=== PATIENT | female | born 1960 | race African-American/Black ===

== ENCOUNTER 2016-12-26 02:57 | Emergency (ER) | payer BC ==
[~2016-12-26] VITALS: Ht 165.1 cm; Wt 72.6 kg
[2016-12-26 03:43] VITALS: BP 179/125
[2016-12-26] MEDS ORDERED: BUPIVACAINE 0.5 % PF 150 MG/30 ML VIAL ONE (04:05)
[2016-12-26] MEDS ORDERED: BUPIVACAINE 0.5 % PF 150 MG/30 ML VIAL IJ ONE (04:30)
== END 2016-12-26 05:40 | disposition home or self-care (01) ==
LOC: ER 03:01
DX: H61.112 Acquired deformity of pinna, left ear (principal); F31.9 Bipolar disorder, unspecified; F17.200 Nicotine dependence, unspecified, uncomplicated; Z88.6 Allergy status to analgesic agent
CPT/HCPCS: 10160; 99284; A4606; A6402; J3490; Z7610

== ENCOUNTER 2016-12-29 14:20 | Emergency (ER) | payer BC ==
[~2016-12-29] VITALS: Ht 165.1 cm; Wt 6.8 kg
[2016-12-29 14:58] VITALS: BP 145/74
[2016-12-29] MEDS ORDERED: FLUORESCEIN SODIUM OPHTH 1 EA STRIP ONE (15:01)
[2016-12-29] MEDS ORDERED: TETRACAINE HCL/PF 0.5% UD 2 ML BOTTLE ONE (15:01)
[2016-12-29] MEDS ORDERED: FLUORESCEIN SODIUM OPHTH 1 EA STRIP OP ONE (15:30)
[2016-12-29] MEDS ORDERED: TETRACAINE HCL/PF 0.5% UD 2 ML BOTTLE OP ONE (15:30)
== END 2016-12-29 17:06 | disposition home or self-care (01) ==
LOC: ER 14:22
DX: H10.9 Unspecified conjunctivitis (principal); H92.02 Otalgia, left ear; F31.9 Bipolar disorder, unspecified; Z88.6 Allergy status to analgesic agent; F17.200 Nicotine dependence, unspecified, uncomplicated
CPT/HCPCS: 99283; 99406; A4606; Z7610

== ENCOUNTER 2020-05-07 09:41 | Inpatient (IN) | payer BC, MEDICAID, OTHER ==
[2020-05-07] VITALS (35 sets, daily range): BP systolic 56–133; BP diastolic 28–89
[~2020-05-07] VITALS: Ht 165.1 cm; Wt 107.0 kg
--- NOTE | 2020-05-07 09:45 | NUR ---
BIB RA [facility] FROM [facility],C/O ABDOMINAL PAIN SINCE YESTERDAY, PATIENT STATES "SMOKED MARIJUANA LAST WEEK", TO ER BED 14, HOOKED TO MONITOR, [facility]
[2020-05-07] MEDS ORDERED: ONDANSETRON HCL/PF 4 MG/2 ML VIAL ONE (09:53)
[2020-05-07] MEDS ORDERED: MORPHINE SULFATE INJ 2 MG/ML DISP.SYRIN IV ONE ×2 (10:00→11:00)
[2020-05-07] MEDS ORDERED: IV NS 0.9% 1,000 ML BAG IV ONE (10:00)
[2020-05-07] MEDS ORDERED: ONDANSETRON HCL/PF 4 MG/2 ML VIAL IVP ONE (10:00)
[2020-05-07] MEDS ORDERED: MORPHINE SULFATE INJ 4 MG/ML DISP.SYRIN ONE ×2 (10:03→11:11)
--- NOTE | 2020-05-07 10:15 | NUR ---
GUTIERREZ CATHETER INSERTED VIA STERILE TECHNIQUE. ORDERED BY DR. TERRY.
--- NOTE | 2020-05-07 10:20 | NUR ---
WHEELED OUT VIA RNEY FOR CT SCAN
[2020-05-07 10:21] LABS: BASOPHILS % (AUTO) 0.2 % (0.0-2.0); HEMATOCRIT 48 % (33-45); HEMOGLOBIN 15.4 g/dL (11.5-14.8); LYMPHOCYTES # (AUTO) 1.8 /CMM (0.8-4.8); LYMPHOCYTES % (AUTO) 9.9 % (20.0-44.0); MEAN CORPUSCULAR HGB CONC 32 g/dl (31.0-36.0); MEAN CORPUSCULAR VOLUME 82 fL (82-100); MONOCYTES # (AUTO) 0.9 /CMM (0.1-1.30); NEUTROPHILS # (AUTO) 15.4 /CMM (1.8-8.9); NEUTROPHILS % (AUTO) 84.9 % (43.0-81.0); PLATELET COUNT (AUTO) 320 /CMM (150-450); RED BLOOD CELL COUNT(AUTO) 5.88 MIL/uL (4.0-5.2); WHITE BLOOD COUNT (AUTO) 18.2 K/uL (4.3-11.0)
[2020-05-07 10:32] LABS: CALCIUM, SERUM 10.1 mg/dL (8.5-10.1); CREATININE 6.7 mg/dL (0.6-1.3); POTASSIUM 5.5 mmol/L (3.5-5.1)
[2020-05-07 10:41] LABS: ALBUMIN 3.8 g/dL (3.4-5.0); BILIRUBIN,DIRECT 0.2 mg/dL (0.0-0.2); BILIRUBIN,TOTAL 1.4 mg/dL (0.2-1.0); TOTAL PROTEIN, SERUM 8.7 g/dL (6.4-8.2)
--- NOTE | 2020-05-07 10:55 | NUR ---
NO URINE OUTPUT FROM GUTIERREZ CATHETER, MADE AWARE, VERBAL ORDER OF 1L NS IVPB, CARRIED OUT
--- NOTE | 2020-05-07 11:23 | NUR ---
PATIENT REFUSED NG TUBE INSERTION, MADE AWARE.
--- NOTE | 2020-05-07 11:26 | NUR ---
MADE AWARE OF PATIENT'S BP. MD ORDERED TO HOLD OFF MORPHINE 4MG IV. CARRIED OUT
--- NOTE | 2020-05-07 11:27 | NUR ---
PLACED PATIENT ON [place]BURG POSITION, ONGOING IV FLUIDS. RECEIVED VERBAL ORDER FROM DR TERRY FOR A THIRD LITER OF NS IVPB. CARRIED OUT.
--- NOTE | 2020-05-07 11:47 | NUR ---
RAPID COVID SWAB DONE AND SENT TO LAB
[2020-05-07] MEDS ORDERED: VANCOMYCIN 1 GM in IV D5W 250 ML IV ONE (12:00)
[2020-05-07] MEDS ORDERED: IV NS 0.9% 1,000 ML IV ONE (12:00)
[2020-05-07] MEDS ORDERED: PIPERACILLIN /TAZOBACTAM 3.375 G in IV D5W 50 ML IV ONE (12:00)
[2020-05-07] MEDS ORDERED: VANCOMYCIN 1 GM VIAL ONE (12:01)
--- NOTE | 2020-05-07 12:10 | NUR ---
PROJECT CONTROLS SCHEDULER TOVAR AT BEDSIDE
--- NOTE | 2020-05-07 12:22 | NUR ---
ICU 251
[2020-05-07] MEDS ORDERED: MAGNESIUM HYDROXIDE 30 ML UDC PO PRN (12:30)
[2020-05-07] MEDS ORDERED: IV NS 0.9% 500 ML BAG IV ONE ×2 (12:30→15:30)
--- NOTE | 2020-05-07 12:43 | NUR ---
COVID RESULT RECEIVED FROM LAB: NEGATIVE
--- NOTE | 2020-05-07 13:02 | NUR ---
REPORT GIVEN TO NANCY RITCHIE OF ICU
--- NOTE | 2020-05-07 13:58 | NUR ---
PER RADIOLOGIST MD DANG, TO HOLD UNTIL PT IS TRANSFERED TO THEIR ROOM. TO PERFORM EXAM PREFERABLY WHEN PT HAS NG TUBE TO DECREASE ASPIRATION RISK.
--- NOTE | 2020-05-07 14:11 | NUR ---
DR TERRY AT BEDSIDE FOR CENTRAL LINE PLACEMENT
[2020-05-07 15:13] LABS: APPEARANCE,URINE SL CLOUDY (CLEAR); BILIRUBIN,URINE NEGATIVE (NEGATIVE); BLOOD, URINE LARGE Ery/uL (NEGATIVE); COLOR,URINE YELLOW (YELLOW); KETONES,URINE NEGATIVE (NEGATIVE); LEUKOCYTE ESTERASE ,URINE NEGATIVE (NEGATIVE); NITRITE, URINE NEGATIVE (NEGATIVE); PH,URINE 5.5 (5.0-8.0); PROTEIN,URINE 100 mg/dl (NEGATIVE); UGLUCOSE NEGATIVE (NEGATIVE); UROBILINOGEN,URINE 0.2 EU/dL (0.2)
[2020-05-07] MEDS: NOREPINEPHRINE 8 MG in IV NS 0.9% 242 ML IV PRN ×2 (15:22→23:22)
[2020-05-07 15:42] LABS: BACTERIA,URINE 1+ /HPF (None Seen); COARSE GRANULAR CASTS,URINE Few /LPF (None Seen); RBC,URINE 21-50 /HPF (0-2); SQUAMOUS EPITHELIAL CELL,UR Moderate /HPF (None Seen); URINE AMORPHOUS URATE Few /HPF (None Seen)
--- NOTE | 2020-05-07 16:15 | NUR ---
agriculture internship received pt from ER aox2 on 2l nc st on monitor, iv access patent L hand and R grown picc line patent, pt on levophed as ordered sbp 80s pt is a symptomatic awake, complaining of pain 10/ awaiting for md order for pain management, Dr. Pickens at bedside assessing the pt no further orders received from him, safety measures taken call light w/ in reach will con to monitor.
[2020-05-07] MEDS: IV NS 0.9% 1,000 ML IV PRN (17:19)
[2020-05-07] MEDS: MORPHINE SULFATE INJ 2 MG/ML DISP.SYRIN IV PRN ×2 (17:20→21:21)
[2020-05-07] MEDS ORDERED: DIATR MEGLU/DIATRIZOATE SODIUM 120 ML BOTTLE (GASTROGRAPHIN) ONE (17:35)
--- NOTE | 2020-05-07 18:02 | NUR ---
agriculture science teacher nima monahan arrived for small bowl follow through test...
--- NOTE | 2020-05-07 19:30 | NUR ---
ICU/SLIDE DEVELOPER AIRCRAFT LINE ASSEMBLER HERE TO DO SMALL BOWEL FOLLOW THROUGH TEST WITH GASTROGRAFIN.
--- NOTE | 2020-05-07 20:30 | NUR ---
ICU/CABINET WORKER TRANSFER SPECIALIST HERE TO DO SMALL BOWEL FOLLOW THROUGH TEST WITH GASTROGRAFIN.
[2020-05-07] MEDS: PIPERACILLIN /TAZOBACTAM 2.25 G in IV D5W 50 ML IV SCH (21:21)
--- NOTE | 2020-05-07 21:30 | NUR ---
ICU/EMBEDDED SYSTEMS SOFTWARE ENGINEER ROSE GRADER HERE TO DO SMALL BOWEL FOLLOW THROUGH TEST WITH GASTROGRAFIN.
--- NOTE | 2020-05-07 21:45 | NUR ---
ICU/BOOTH OPERATOR PT COMPLAINED ABOUT SEVER ABDOMINAL PAIN RATED AT 10/10. NOTIFIED CHARGE NURSE WHO THEN GAVE MORPHINE IVP 2MG.
[2020-05-07] MEDS: ONDANSETRON HCL/PF 4 MG/2 ML VIAL IVP PRN (23:16)
[2020-05-07] MEDS ORDERED: NOREPINEPHRINE 8MG/250ML RTU 250 ML IV ONE (23:19)
--- NOTE | 2020-05-07 23:25 | NUR ---
ICU/PHOTOGRAPHY TEACHER PT HAD VOMITING X2, NOTIFIED CHARGE NURSE WHO GAVE ZOFRAN IVP FOR THIS. WILL CONTINUE TO MONITOR THIS PT AND HER NAUSEA.
--- NOTE | 2020-05-07 23:50 | NUR ---
ICU/SHOP MECHANIC HELPER PT HAD LARGE WATERY BOWEL MOVEMENT, FOR ABOUT 45-55 MINUTES. PT WAS CLEAN AND PLACED IN BED WITH CALL LIGHT.
[2020-05-08] VITALS (96 sets, daily range): BP systolic 68–160; BP diastolic 30–100
[2020-05-08 00:04] LABS: BASOPHILS % (AUTO) 0.1 % (0.0-2.0); HEMATOCRIT 45 % (33-45); HEMOGLOBIN 14.1 g/dL (11.5-14.8); LYMPHOCYTES # (AUTO) 0.5 /CMM (0.8-4.8); LYMPHOCYTES % (AUTO) 8.2 % (20.0-44.0); MEAN CORPUSCULAR HGB CONC 31 g/dl (31.0-36.0); MEAN CORPUSCULAR VOLUME 83 fL (82-100); MONOCYTES # (AUTO) 0.7 /CMM (0.1-1.30); MONOCYTES % (AUTO) 11.2 % (2.0-12.0); NEUTROPHILS % (AUTO) 80.5 % (43.0-81.0); PLATELET COUNT (AUTO) 276 /CMM (150-450); RED BLOOD CELL COUNT(AUTO) 5.44 MIL/uL (4.0-5.2); WHITE BLOOD COUNT (AUTO) 6.2 K/uL (4.3-11.0)
[2020-05-08 00:52] LABS: CALCIUM, SERUM 8.5 mg/dL (8.5-10.1); CREATININE 5.3 mg/dL (0.6-1.3); POTASSIUM 5.3 mmol/L (3.5-5.1)
[2020-05-08] MEDS: MORPHINE SULFATE INJ 2 MG/ML DISP.SYRIN IV PRN ×2 (02:36→08:48)
[2020-05-08] MEDS: IV NS 0.9% 1,000 ML IV PRN ×2 (02:37→14:04)
--- NOTE | 2020-05-08 02:37 | NUR ---
ICU/MEAT PROCESSING CENTER MANAGER PT COMPLAINED ABOUT SEVER ABDOMINAL PAIN RATED AT 10/10. NOTIFIED CHARGE NURSE WHO THEN GAVE MORPHINE IVP 2MG. WILL CONTINUE TO MONITOR THIS PT'S PAIN.
[2020-05-08 04:19] LABS: BASOPHILS % (AUTO) 0.3 % (0.0-2.0); HEMATOCRIT 40 % (33-45); HEMOGLOBIN 12.7 g/dL (11.5-14.8); LYMPHOCYTES # (AUTO) 0.3 /CMM (0.8-4.8); LYMPHOCYTES % (AUTO) 7.7 % (20.0-44.0); MEAN CORPUSCULAR HGB CONC 32 g/dl (31.0-36.0); MEAN CORPUSCULAR VOLUME 82 fL (82-100); MONOCYTES # (AUTO) 0.4 /CMM (0.1-1.30); MONOCYTES % (AUTO) 11.5 % (2.0-12.0); NEUTROPHILS # (AUTO) 3.1 /CMM (1.8-8.9); NEUTROPHILS % (AUTO) 80.5 % (43.0-81.0); PLATELET COUNT (AUTO) 249 /CMM (150-450); WHITE BLOOD COUNT (AUTO) 3.9 K/uL (4.3-11.0)
[2020-05-08 04:26] LABS: APPEARANCE,URINE CLOUDY (CLEAR); BILIRUBIN,URINE NEGATIVE (NEGATIVE); BLOOD, URINE LARGE Ery/uL (NEGATIVE); COLOR,URINE YELLOW (YELLOW); KETONES,URINE NEGATIVE (NEGATIVE); LEUKOCYTE ESTERASE ,URINE NEGATIVE (NEGATIVE); NITRITE, URINE NEGATIVE (NEGATIVE); PH,URINE 5.5 (5.0-8.0); PROTEIN,URINE 100 mg/dl (NEGATIVE); UGLUCOSE NEGATIVE (NEGATIVE); UROBILINOGEN,URINE 0.2 EU/dL (0.2)
[2020-05-08 04:38] LABS: URINE TOTAL PROTEIN 189.3 mg/dL (0-11.9)
[2020-05-08 04:39] LABS: CALCIUM, SERUM 7.7 mg/dL (8.5-10.1); CREATININE 4.8 mg/dL (0.6-1.3); MAGNESIUM 2.2 mg/dL (1.8-2.4); PHOSPHORUS 6.7 mg/dL (2.5-4.9); POTASSIUM 4.6 mmol/L (3.5-5.1); THYROID STIMULATING HORMONE 0.571 uIU/mL (0.358-3.74)
[2020-05-08 04:44] LABS: BACTERIA,URINE Moderate /HPF (None Seen); RBC,URINE TOO NUMEROUS TO COUN /HPF (0-2); SQUAMOUS EPITHELIAL CELL,UR Few /HPF (None Seen)
[2020-05-08 04:47] LABS: FINE GRANULAR CASTS,URINE Few /LPF (None Seen)
[2020-05-08 05:07] LABS: EOSINOPHIL,URINE None Seen
[2020-05-08] MEDS: PIPERACILLIN /TAZOBACTAM 2.25 G in IV D5W 50 ML IV SCH (05:15)
[2020-05-08] MEDS ORDERED: NOREPINEPHRINE 8MG/250ML RTU 250 ML IV ONE (05:49)
[2020-05-08] MEDS: NOREPINEPHRINE 8 MG in IV NS 0.9% 242 ML IV PRN ×2 (05:52→11:37)
--- NOTE | 2020-05-08 07:25 | NUR ---
agricultural agent received pt in bed aox3 restless complaining of not being able to eat and wants to eat, pt teaching done safety measures taken call light w/ in reach iv access amada r grown picc line intact dressing cdi, carreno patent yellow urine present will continue to monitor and take care of pt needs.
[2020-05-08] MEDS: HYDROCORTISONE SOD SUCCINATE 100 MG/2 ML VIAL IV SCH ×3 (09:31→21:45)
[2020-05-08] MEDS: HEPARIN SODIUM, PORCINE 5000 UNITS/1 ML VIAL SQ SCH ×2 (09:32→21:48)
[2020-05-08 09:51] LABS: ALBUMIN 2.7 g/dL (3.4-5.0); BILIRUBIN,DIRECT 0.3 mg/dL (0.0-0.2); TOTAL PROTEIN, SERUM 6.3 g/dL (6.4-8.2)
[2020-05-08] MEDS: PIPERACILLIN /TAZOBACTAM 3.375 G in IV D5W 100 ML IV SCH (13:35)
--- NOTE | 2020-05-08 15:54 | NUR ---
Speech And Hearing Clinic Director met with the patient at bedside for a homelessness consult requested by patients physician, Sam Parkinson NP. Patient is a 59-year-old female. Patient is alert and oriented x3. Patient was lying in bed with a towel over her head. Patient was receptive to speaking with this SW as she moved the towel upwards in motion to uncover her eyes to make direct eye contact. This SW was able to verify patients social security number and date of . Patient reported that she was living at [facility] but could not provide an address when asked. Patient stated that she is having physical distress and began to list her symptoms including stomach burning, chest pain, and blood sugar lowering. SW encouraged the patient to speak about her mental and emotional distress, if she had any. Patient began to share that she is grieving the loss of her 31-year-old son by stating I have 2 days to get out of here to attend my sons . Patient gave verbal consent to contact her sister Fior Arriaga to find out more information by stating Call my sister, she will tell you more. Following this, patient refused to speak with this SW by stating I will not tell you more, I am grieving. This SW thanked her and stated that she would return later in the day to try to finish assessment.
--- NOTE | 2020-05-08 15:55 | NUR ---
. 10:15am This SW unsuccessful to contact sister Fior Arriaga as phone is disconnected.
--- NOTE | 2020-05-08 18:10 | NUR ---
RECORDING STUDIO SET UP WORKER PT IN BED ALL PT NEEDS MEET ATTEMPTED TO DC LEVOPHED UNSUCCESSFULLY, PT ON MINIMAL DOSE OF LEVOPHED FOR SBP SUPPORT PT TOLERATES PO FLUIDS, ALL PT NEEDS MEET SAFETY MEASURES TAKEN CALL LIGHT W/ IN REACH WILL GIVE REPORT TO PM NURSE FOR CON OF CARE.
--- NOTE | 2020-05-08 19:15 | NUR ---
LOAD CHECKER RECEIVED PATIENT IN BED A/O X4 GUAMANIAN SPEAKER AND BLIND ON THE LEFT EYE. PATIENT COMPLAINS OF SOME ABD PAIN THAT RELIEVES WHEN PATIENT REPOSITIONS HERSELF. PATIENT WAS ASSESSED ON ROOM AIR BUT NOTICES SOME DESATURATING SO JUST OUT HER ON 2L OF O2 FOR COMFORT. PATIENT HAS A R GROIN PICC WITH LEVO RUNNING AT 0.05MCG/KG/MIN, AND NS AT 125CC/HR. COMMODE WAS PLACED AT BEDSIDE SINCE PATIENT IS REFUSING FOR A GUTIERREZ TO BE INSERTED. PATIENT IS ABLE TO AMBULATE TO COMMODE WITH ASSISTANCE. PATIENT ON THE MONITOR SHOWING SINUS WITH HR AT 95 TACHY WHEN SHE SHOWS AGITATION DUE TO HER ABD PAIN. ALL SAFETY PRECAUTIONS APPLIED. WILL CONTINUE TO MONITOR PATIENT THROUGHOUT SHIFT.
[2020-05-09] VITALS (63 sets, daily range): BP systolic 48–133; BP diastolic 28–84
[2020-05-09] MEDS: PIPERACILLIN /TAZOBACTAM 3.375 G in IV D5W 100 ML IV SCH ×2 (00:22→12:40)
[2020-05-09] MEDS: NOREPINEPHRINE 8 MG in IV NS 0.9% 242 ML IV PRN (00:36)
[2020-05-09 03:58] LABS: BASOPHILS % (AUTO) 0.1 % (0.0-2.0); HEMATOCRIT 37 % (33-45); HEMOGLOBIN 11.9 g/dL (11.5-14.8); LYMPHOCYTES # (AUTO) 0.2 /CMM (0.8-4.8); LYMPHOCYTES % (AUTO) 3.7 % (20.0-44.0); MEAN CORPUSCULAR HGB CONC 32 g/dl (31.0-36.0); MEAN CORPUSCULAR VOLUME 82 fL (82-100); MONOCYTES # (AUTO) 0.7 /CMM (0.1-1.30); MONOCYTES % (AUTO) 11.2 % (2.0-12.0); NEUTROPHILS # (AUTO) 5.1 /CMM (1.8-8.9); PLATELET COUNT (AUTO) 205 /CMM (150-450); RED BLOOD CELL COUNT(AUTO) 4.58 MIL/uL (4.0-5.2)
[2020-05-09 04:14] LABS: ALANINE AMINOTRANSFERASE 29 U/L (12-78); ALBUMIN 2.3 g/dL (3.4-5.0); ALKALINE PHOSPHATASE 78 U/L (46-116); ASPARTATE AMINOTRANSFERASE 29 U/L (15-37); BILIRUBIN,TOTAL 0.9 mg/dL (0.2-1.0); CARBON DIOXIDE 18 mmol/L (21-32); CHLORIDE 111 mmol/L (98-107); CREATININE 3.1 mg/dL (0.6-1.3); GLUCOSE 151 mg/dL (74-106); MAGNESIUM 2.3 mg/dL (1.8-2.4); PHOSPHORUS 4.3 mg/dL (2.5-4.9); POTASSIUM 3.8 mmol/L (3.5-5.1); SODIUM SERUM 144 mmol/L (136-145); TOTAL PROTEIN, SERUM 6.2 g/dL (6.4-8.2); UREA NITROGEN, BLOOD 56 mg/dL (7-18)
[2020-05-09] MEDS: HYDROCORTISONE SOD SUCCINATE 100 MG/2 ML VIAL IV SCH (05:01)
[2020-05-09] MEDS: MORPHINE SULFATE INJ 2 MG/ML DISP.SYRIN IV PRN ×4 (05:35→20:37)
[2020-05-09] MEDS: IV NS 0.9% 1,000 ML IV PRN ×2 (05:53→12:51)
[2020-05-09] MEDS: MAG HYDROX/AL HYDROX/SIMETH 30 ML UDC PO PRN ×3 (05:59→17:48)
--- NOTE | 2020-05-09 07:50 | NUR ---
EXTERMINATOR HELPER: pt is blind reported
--- NOTE | 2020-05-09 08:00 | NUR ---
SUPERINTENDENT DIVISION: pt.is A/Ox3, needy, got all AM/skin care, on Levophed gtt 0.05 mcg/kg/m, SBP 90-105 now, continue titrate, SR, O2sat 94-96% on 2Lnc, c/o abdomen pain 2-310 now, said: I have gastroenteritis, refused to take breakfast, placed order for hand cigar maker consult, w/s with MD, had BM, no blood/urinated, said: you have to send stool sample to lab right now because I have gastroenteritis, will notify , IVF: 125ml/h, able to use bedside commode with help, pt. was instructed re injury prevention measures, safety measures, fall prevention measures, nurse call remote at the pt.hands, PICC is patent/intact
[2020-05-09] MEDS: HEPARIN SODIUM, PORCINE 5000 UNITS/1 ML VIAL SQ SCH ×2 (08:16→20:36)
--- NOTE | 2020-05-09 10:04 | NUR ---
CREPING MACHINE OPERATOR HELPER: is in room, updated with pt.c/o, mental status, VS, Levophed gtt, IVF, diet and pt.request, history, I/O, BMx1, see new orders
--- NOTE | 2020-05-09 10:10 | NUR ---
APPARATUS OPERATOR: pt.spoke with chief business officer by phone call
--- NOTE | 2020-05-09 10:40 | NUR ---
MANAGER CULINARY: pt.c/o abdomen pain 7-8/10, restless, agitating, uncooperative, was encouraged to follow POC, got help to get bedside commode: urine mixed with liquid stool, will notify MD, asks apple juice exactly mixed 1:1 with water and ice, SB over 100/stopped Levophed gtt, SR, O2sat. over 93% on 2L nc, Morphine 2mg IV given, pt.is blind, spoke with charge nurse if possible to get sitter?
--- NOTE | 2020-05-09 11:00 | NUR ---
ICE CREAM MIXER: pt.is quite now, rest, SR, SBP over 100/Levophed off, hold Ativan now/continue monitoring
--- NOTE | 2020-05-09 11:50 | NUR ---
MACHINERY REPAIR MAINTENANCE SUPERVISOR: Levophed gtt is off since 07.18, pt had one BM liquid mixed with urine, pt.got Gastrografin on 05/07, is notified re above, ok to transfer pt if Levophed is off over 12hrs and SBP over 100, charge nurse updated
[2020-05-09] MEDS ORDERED: VANCOMYCIN 0.75 GM in IV D5W 250 ML IV SCH (12:00)
--- NOTE | 2020-05-09 12:10 | NUR ---
COMMUNICATION STUDIES PROFESSOR: psych.MD called/spoke with pt., see new orders
--- NOTE | 2020-05-09 12:30 | NUR ---
BOBBIN SORTER: pt is restless now, agitating, was asking for tea, bread, banana, /got it, got bedside commode, liquid stool, loose with urine+, refused to check BP, O2 nc, encouraged to be cooperative, follow POC, agree to get Ativan 0.5 mg, SW spoke with pt.
[2020-05-09] MEDS: LORAZEPAM INJ 2 MG/ML VIAL IV PRN (12:51)
[2020-05-09] MEDS: DULOXETINE HCL 30 MG CAPSULE.DR PO SCH (13:58)
--- NOTE | 2020-05-09 14:50 | NUR ---
LEAD TELLER: SR/ST max 110, Levophed is off/SBP over 95-100, Osat.WNL but pt removed NC multiple times, NS reapplied with O2sat. 90-93%, got Cymbalta, got part of lunch again, c/o anterior abdomen pain 7-8/10, some bloating, got Morphine 2 mg IV, getting Maalox, able to use bedside commode by herself with assistant center director, refused for F/c before reported
--- NOTE | 2020-05-09 15:13 | NUR ---
11:30am This SW returned to this patients room to attempt to finish her homelessness consult requested by patients physician, Sam Parkinson NP. Patient is currently in the ICU. Patient is a 59 year-old female. When this SW entered the room this patient was observed to be restless and agitated. This patient stated that she was in physical distress, My stomach hurts, I need to get it pumped. Patient was also asking for food and RN was in the room setting up the patients food during this interaction with this SW. Patient stated to this SW, I do not want to talk to you, call my sister. This SW was unable to speak with the patients sister Fior, yesterday 05/08/2020. This SW received verbal consent by the patient to attempt speaking with her sister again today 05/09/2020.
--- NOTE | 2020-05-09 15:14 | NUR ---
11:45am This SW attempted to contact with patients sister Fior . This SW was once again unable to connect with Fior, however was able to leave a voicemail for the patients sister.
--- NOTE | 2020-05-09 16:00 | NUR ---
BOGGER OPERATOR: pt.is rest, sleeps well, no c/o now, SR, SBP over 100, O2sat. over 96%
--- NOTE | 2020-05-09 17:07 | NUR ---
MINIBUS DRIVER: placed pt on RA, O2sat. 96-100%, no SOB
--- NOTE | 2020-05-09 18:19 | NUR ---
EVENTS TRAFFIC CONTROLLER: pt.pulled out partially PICC dressing, new one applied with sterile technique, blood return+, pt.is still needy, asking for different help [id number], got help with everything: feeding, drinking, transfer, reposition, warmed, all PM/skin/bedbath care done, c/o dyspepsia, said: my stomach is pumped, asked and got Maalox, asked and got dinner included Ensure, SR/ST 110 max, SBP over 100
--- NOTE | 2020-05-09 18:40 | NUR ---
ENGINEERING SUPERVISOR: GORDO Landaverde updated with pt.current condition, Levophed gtt off, VS, I/O, liquid stool episodes, c/o, pain level/location, see new order
--- NOTE | 2020-05-09 19:10 | NUR ---
AIRLINE MANAGER OPENING NOTES: Rec'd pt asleep in bed, easily arousable, A&Ox3. On room air, O2 sat WNL. No SOB or resp distres noted. SR/ST on tele monitor. Right groin PICC line and LH #20 IV sites patent and flushed. Dressings c/d/i. NS infusing at 125ml/hr. Per AM RN, ok to transfer pt if BP remains stable at 2200. Safety measures in place. Will continue to monitor.
--- NOTE | 2020-05-09 21:20 | NUR ---
Report given to CHAU Morrell for WINTER.
--- NOTE | 2020-05-09 21:45 | NUR ---
rn notes: per report pt had small bowel follow through and after that pt started having loose bm, id aware, and new order this afternoon to collect stool cdiff, per juanita curriculum coordinator pt has no bm yet.
[2020-05-09] MEDS: ONDANSETRON HCL/PF 4 MG/2 ML VIAL IVP PRN (21:48)
--- NOTE | 2020-05-09 21:48 | NUR ---
prn zofran: pt vomited food and fluids, once, prn zofran 4mg ivp administered to pt at this time. will continue to monitor and reassess
--- NOTE | 2020-05-09 21:57 | NUR ---
rn notes/assessment: skin assessment performed, pt has right groin picc line with tlc, all patent and flushing well, with good blood return noted, pt receiving ns at 125ml/hr. pt instructed not to drinkl or eat for the mean time since shes vomiting. abdomen soft to touch with actiuve bowel sound heard upon auscultation, pt claimed she's been passing a lot of gas, prn maalox administered in icu 3hrs ago. inventory of belongings completed by kevin renee. vs taken and recorded. bed side commode available, and bedpan for voiding. placed on cdiff isolation, ppe utillized. bleach solution available at cart. safety precautions for fall initiated, call light in reach, will continue monitoring pt.
--- NOTE | 2020-05-09 22:00 | NUR ---
rn notes: per report, pt pulled out carreno catheter on 05/07, and pt been refusing to reinsert carreno. pt been voiding freely on bedpan.
--- NOTE | 2020-05-09 23:06 | NUR ---
rn notes: pt sound asleep, appears calm and comfortable, no facial grimace noted, equaul rise and fall of chest noted. fall precautions engaged, call light in reach, kevin renee sitting outside the room in case pt called for assistance. will continue monitoring pt.
[2020-05-10] MEDS: IV NS 0.9% 1,000 ML IV PRN ×2 (00:23→20:41)
[2020-05-10] MEDS: PIPERACILLIN /TAZOBACTAM 3.375 G in IV D5W 100 ML IV SCH ×3 (00:26→19:58)
--- NOTE | 2020-05-10 00:47 | NUR ---
transfer of care notes: pt remains a/o x3, needy, manipulative. right groin picc line remains patent and flushing well, infusing with ns at 125ml/hr, no s/s of iv infiltration noted. remains with good blood return. pt remains on clear liquid diet. prn zofran administered for episode of vomiting. prn morphine administered for c/o abdl pain. bed side commode available. still needs joanne for cdiff, no bm noted throughout the shift. PLAN OF CARE: Cont iv atb, psych started pt on cymbalta daily, social svc on case for homelessness. Remains on cdiff isolation. ppe utilized. Safety precautions for fall remains engaged, call light in reach, will endorse to pat hodgson for continuuity of care.
--- NOTE | 2020-05-10 00:50 | NUR ---
MS RN NOTES RECEIVED REPORT FROM TERRY, RN; WILL CONT TO MONITOR; WILL CONT PLAN OF CARE
--- NOTE | 2020-05-10 02:46 | NUR ---
MS RN NOTES DARK GREEN EMESIS NOTED; CHARGE NURSE AWARE; WILL CONT TO MONITOR
[2020-05-10] MEDS: MORPHINE SULFATE INJ 2 MG/ML DISP.SYRIN IV PRN ×3 (02:55→19:58)
--- NOTE | 2020-05-10 02:55 | NUR ---
MS RN NOTES PATIENT SCREAMING FOR PAIN MEDICATION; PATIENT VITALS STABLE; REQUESTING MORPHINE; 2MG MORPHINE IVP ADMINISTERED PER MD ORDER; WILL CONT TO MONITOR; L HAND # 20 IV SITE PULLED OUT ON ACCIDENT; IV TIP INTACT; CHARGE NURSE AWARE; WILL CONT TO MONITOR
--- NOTE | 2020-05-10 06:52 | NUR ---
MS RN CLOSING NOTES PATIENT RESTING IN BED COMFORTABLY; A/OX3-4, NEEDY/MANIPULATIVE PATIENT; PATIENT IS BLIND; BREATHING EVEN AND UNLABORED; NO SOB NOTED; TOLERATING ROOM AIR WELL; PATIENT ABLE TO MAKE NEEDS KNOWN; R GROIN PICC LINE INTACT AND PATENT, FLUSHING WELL; INFUSING NS @ 75ML/HR; TOLERATING IVF WELL; R/O CDIFF BUT NO BOWEL MOVEMENT THROUGHOUT SHIFT, WILL INFORM DAY SHIFT; PATIENT HAD APPROX 3 EMESIS THROUGHOUT SHIFT; PATIENT UNABLE TO TOLERATE DIET; CHARGE NURSE AWARE; WILL INFORM DAY SHIFT; ALL NEEDS RENDERED; SAFETY PRECAUTIONS IMPLEMENTED; BED LOCKED IN LOW POSITION; SIDE RAILSX2; CALL LIGHT WITHIN EASY REACH; WILL ENDORSE WINTER TO ONCOMING SHIFT
[2020-05-10 08:00] VITALS: BP 145/98
[2020-05-10] MEDS: DULOXETINE HCL 30 MG CAPSULE.DR PO SCH (08:02)
[2020-05-10] MEDS: HEPARIN SODIUM, PORCINE 5000 UNITS/1 ML VIAL SQ SCH ×2 (08:04→20:33)
[2020-05-10] MEDS: MAG HYDROX/AL HYDROX/SIMETH 30 ML UDC PO PRN ×2 (08:10→20:31)
[2020-05-10 09:03] LABS: CALCIUM, SERUM 8.9 mg/dL (8.5-10.1); CREATININE 1.6 mg/dL (0.6-1.3); POTASSIUM 3.5 mmol/L (3.5-5.1)
--- NOTE | 2020-05-10 09:25 | NUR ---
rn notes patient received on room air, no sob noted, a/o x3 and is bilaterally blind. No N/V at this time, LFA 22 with no IVF running. Patient comfortable at this time. Bed at the lowest setting, call light within reach, side rails up x2.
[2020-05-10] MEDS: ONDANSETRON HCL/PF 4 MG/2 ML VIAL IVP PRN ×2 (10:58→20:31)
--- NOTE | 2020-05-10 17:25 | NUR ---
rn notes patient remains on room air, no sob noted, a/o x3 and is bilaterally blind. No N/V at this time, LFA 22 with no IVF running. Patient comfortable at this time. Bed at the lowest setting, call light within reach, side rails up x2.
--- NOTE | 2020-05-10 19:20 | NUR ---
turn out worker: pt a/o x3, needy, manipulative. on ra respirations even right groin picc line remains patent and flushing well, infusing with ns at 125ml/hr, remains with good blood return. bed side commode available. still needs stool for cdiff, cdiff isolation. ppe utilized. Safety precautions for fall remains engaged, call light in reach,will continue monitoring pt.
--- NOTE | 2020-05-10 19:59 | NUR ---
PRN MORPHINE: PT C/O 04/28 ABL PAIN, REQUESTING FOR PAIN MEDICATION. PRN MORPHINE 2MG IVP ADMINISTERED TO PT AT THIS TIME. VS TAKEN AND RECORDED PRIOR TO ADMINISTERING MEDICATION.
[2020-05-10 20:00] VITALS: BP 171/96
--- NOTE | 2020-05-10 20:42 | NUR ---
PRN ZOFRAN: PT REQUESTED FOR ZOFRAN BEFORE SHE EAT/DRINK JUICE, PRN ZOFRAN 4MG IVP ADMINISTERED TO PT AT THIS TIME.
--- NOTE | 2020-05-10 21:30 | NUR ---
rn notes: pt vomited after drinking juice, vomit noted on the floor, pt still kept asking for food, informed pt that she is not allowed to have anything by mouth at this time since she's vomiting. pt refusing, asking for sandwhich. education provided to pt.
[2020-05-10 22:00] VITALS: BP 155/82
--- NOTE | 2020-05-10 22:30 | NUR ---
rn notes: pt asking for juice again and sand which, provided with 60ml of apple juice, as trial, informed pt if she doesnt have any vomiting then she can eat later on.
[2020-05-11] VITALS: BP 145/96
[2020-05-11] MEDS: MORPHINE SULFATE INJ 2 MG/ML DISP.SYRIN IV PRN ×2 (00:34→04:31)
--- NOTE | 2020-05-11 02:00 | NUR ---
rn notes: pt very manipulative, needy, calling a lot, although rn and staff developer kept doing rounds on her almost [id number]. in addition, she's been yelling, screaming toward staff, treating staff like slaves, informed pt those behavior she portrayed are not acceptable and will not be tolerated. pt apologize. but after a while, she started yelling again. pt aware of next pain meds due, next zofran due. rn quality aware of pt's behavior.
[2020-05-11] MEDS: PIPERACILLIN /TAZOBACTAM 3.375 G in IV D5W 100 ML IV SCH ×2 (03:07→11:28)
[2020-05-11] MEDS: ONDANSETRON HCL/PF 4 MG/2 ML VIAL IVP PRN ×4 (03:07→20:14)
[2020-05-11] MEDS: MAG HYDROX/AL HYDROX/SIMETH 30 ML UDC PO PRN (03:08)
--- NOTE | 2020-05-11 03:09 | NUR ---
prn zofran and maalox: prn zofran administered for pt's c/o vomiting, pt vomited twice mostly fluid/juice stated she drink orange juice. also she insisted on taking maalox for gas pain.
--- NOTE | 2020-05-11 04:32 | NUR ---
prn morphine: pt c/o 04/28 abdominal pain, requesting for morphine. prn morphine 2mg ivp administered to pt at this time.
--- NOTE | 2020-05-11 05:00 | NUR ---
rn notes/am care: assisted kevin grissom in providing bed bath to pt, complete linen change provided. also chlorhexidine bath provided on pt's groin to lower extremity area as pt has picc line on right groin.
--- NOTE | 2020-05-11 05:16 | NUR ---
rn notes: pt had loose bm, brown color, liquid consistency with fluppy pieces and ragged edges, id md andreas fischer ordered stool to be collected eval for cdiff.
--- NOTE | 2020-05-11 06:55 | NUR ---
end of shift report: pt remains a/o x3,on ra respirations even and unlabored. pt noted to be needy, manipulative, yelling and screaming toward the staff most of the time. right groin picc line remains patent and flushing well, infusing with ns at 125ml/hr, no s/s of iv infiltration noted. remains with good blood return. prn zofran administered for episode of vomiting. prn morphine administered for c/o abdl pain. vomited twice throughout the shift. automotive general manager assisted pt to bedpan 5x last night. bed side commode available. awaiting stool result for cdiff. PLAN OF CARE: Cont iv atb, social svc on case for homelessness. Remains on cdiff isolation. ppe utilized. Safety precautions for fall remains engaged, call light in reach, will endorse to rn terrell for continuity of care.
[2020-05-11 07:03] LABS: BASOPHILS % (AUTO) 0.1 % (0.0-2.0); EOSINOPHILS % (AUTO) 0.3 % (0.0-6.0); HEMATOCRIT 39 % (33-45); HEMOGLOBIN 12.5 g/dL (11.5-14.8); LYMPHOCYTES # (AUTO) 0.7 /CMM (0.8-4.8); MEAN CORPUSCULAR HGB CONC 32 g/dl (31.0-36.0); MEAN CORPUSCULAR VOLUME 81 fL (82-100); MONOCYTES # (AUTO) 0.9 /CMM (0.1-1.30); MONOCYTES % (AUTO) 17.5 % (2.0-12.0); NEUTROPHILS # (AUTO) 3.5 /CMM (1.8-8.9); NEUTROPHILS % (AUTO) 68.1 % (43.0-81.0); PLATELET COUNT (AUTO) 172 /CMM (150-450); RED BLOOD CELL COUNT(AUTO) 4.85 MIL/uL (4.0-5.2); WHITE BLOOD COUNT (AUTO) 5.2 K/uL (4.3-11.0)
[2020-05-11 07:22] LABS: CALCIUM, SERUM 8.7 mg/dL (8.5-10.1); CREATININE 1.3 mg/dL (0.6-1.3); MAGNESIUM 3.1 mg/dL (1.8-2.4); PHOSPHORUS 2.5 mg/dL (2.5-4.9); POTASSIUM 3.3 mmol/L (3.5-5.1)
--- NOTE | 2020-05-11 07:52 | NUR ---
rn notes patient received on room air, no sob noted, a/o x3 and is blind bilateral eyes. skin intact with r groin picc line, NS @ 125 ml per hour. bed at the lowest setting, call light within reach, side rails up x2.
[2020-05-11 08:00] VITALS: BP 132/80
[2020-05-11] MEDS: DULOXETINE HCL 30 MG CAPSULE.DR PO SCH (08:25)
[2020-05-11] MEDS: HEPARIN SODIUM, PORCINE 5000 UNITS/1 ML VIAL SQ SCH ×2 (08:26→20:20)
[2020-05-11] MEDS: POTASSIUM CHLORIDE 20 MEQ TAB.PRT.SR PO SCH ×3 (10:19→12:03)
[2020-05-11] MEDS ORDERED: ENSURE ENLIVE CHOC 237 ML CAN PO SCH (12:00)
[2020-05-11] MEDS ORDERED: POTASSIUM CHLORIDE 20 MEQ TAB.PRT.SR PO ONE (12:00)
[2020-05-11] MEDS: ENSURE ENLIVE CHOC 237 ML CAN PO SCH ×2 (12:54→16:36)
[2020-05-11] MEDS: HYDROCODONE/APAP 5/325MG TABLET PO PRN ×2 (13:20→18:38)
[2020-05-11 16:00] VITALS: BP 149/81
--- NOTE | 2020-05-11 18:57 | NUR ---
rn notes patient remains on room air, no sob noted, a/o x3 and is blind bilateral eyes. skin intact with r groin picc line, NS @ 125 ml per hour. bed at the lowest setting, call light within reach, side rails up x2.
--- NOTE | 2020-05-11 19:30 | NUR ---
ms rn opening note received patient in bed. a/ox3. patient is legally blind. tolerating room air. respirations are even and unlabored. no s/s sob noted. no c/o pain at this time, per day RN pazco just given. in no apparent distress. iv access in right groin triple lumen picc line running ns@125ml/hr. bed is low and locked, hob elevated in semi fowlers, side rials up x3. call light within reach. will continue to monitor.
--- NOTE | 2020-05-11 19:40 | NUR ---
ms rn note patient trransfered to bed 313-2 with all belongings. will continue to monitor.
[2020-05-11 20:00] VITALS: BP_SYST 125; BP_DIAS 90; BP_DIAS 99
[2020-05-11] MEDS: METRONIDAZOLE 500 MG TABLET PO SCH (20:13)
[2020-05-11] MEDS: CIPROFLOXACIN HCL 500 MG TABLET PO SCH (20:13)
--- NOTE | 2020-05-11 20:15 | NUR ---
ms rn note administered prn zofran 4mg d/t episode of emesis 200ml of beige color, thin. will continue to monitor.
[2020-05-11] MEDS: IV NS 0.9% 1,000 ML IV PRN (23:11)
[2020-05-12] MEDS: HYDROCODONE/APAP 5/325MG TABLET PO PRN ×3 (00:48→09:19)
--- NOTE | 2020-05-12 00:48 | NUR ---
MS RN NOTE ADMINISTERED PRN NORCO 5/325 FOR PAIN 7/10 IN ABDOMEN. WILL CONTINUE TO MONITOR.
[2020-05-12] MEDS: METRONIDAZOLE 500 MG TABLET PO SCH ×2 (05:06→13:22)
[2020-05-12] MEDS: ONDANSETRON HCL/PF 4 MG/2 ML VIAL IVP PRN (05:10)
--- NOTE | 2020-05-12 05:10 | NUR ---
ms rn note administered prn norco 5/325 for pain 7/10 in abdomen . administered zofran 4mg for nausea. will continue to monitor.
[2020-05-12 06:35] LABS: BASOPHILS % (AUTO) 0.1 % (0.0-2.0); EOSINOPHILS % (AUTO) 0.2 % (0.0-6.0); HEMATOCRIT 39 % (33-45); HEMOGLOBIN 12.3 g/dL (11.5-14.8); LYMPHOCYTES # (AUTO) 0.9 /CMM (0.8-4.8); LYMPHOCYTES % (AUTO) 12.8 % (20.0-44.0); MEAN CORPUSCULAR HGB CONC 32 g/dl (31.0-36.0); MEAN CORPUSCULAR VOLUME 82 fL (82-100); MONOCYTES # (AUTO) 0.6 /CMM (0.1-1.30); MONOCYTES % (AUTO) 8.3 % (2.0-12.0); NEUTROPHILS # (AUTO) 5.5 /CMM (1.8-8.9); NEUTROPHILS % (AUTO) 78.6 % (43.0-81.0); PLATELET COUNT (AUTO) 163 /CMM (150-450); RED BLOOD CELL COUNT(AUTO) 4.72 MIL/uL (4.0-5.2)
[2020-05-12] MEDS: IV NS 0.9% 1,000 ML IV PRN (06:40)
--- NOTE | 2020-05-12 06:51 | NUR ---
ms rn closing note patient in bed. a/ox3. remain tolerating room air. respirations are even and unlabored. no sob noted. managed pain with norco 5/325 t/o shift. zofran was given for nausea and vomiting iv access maintained in right groin triple lumen picc line running ns@125ml/hr. bed remains low and locked, hob flat, side rials up x3. call light within reach. will endorse to next shift.
[2020-05-12 07:28] LABS: CALCIUM, SERUM 8.5 mg/dL (8.5-10.1); MAGNESIUM 2.7 mg/dL (1.8-2.4); PHOSPHORUS 2.6 mg/dL (2.5-4.9); POTASSIUM 3.7 mmol/L (3.5-5.1)
[2020-05-12 08:00] VITALS: BP 161/89
[2020-05-12] MEDS: CIPROFLOXACIN HCL 500 MG TABLET PO SCH (08:34)
[2020-05-12] MEDS: DULOXETINE HCL 30 MG CAPSULE.DR PO SCH (08:34)
[2020-05-12] MEDS: HEPARIN SODIUM, PORCINE 5000 UNITS/1 ML VIAL SQ SCH ×2 (08:35→21:28)
[2020-05-12] MEDS: ENSURE ENLIVE CHOC 237 ML CAN PO SCH ×3 (08:39→16:51)
[2020-05-12] MEDS: LORAZEPAM INJ 2 MG/ML VIAL IV PRN (14:35)
--- NOTE | 2020-05-12 15:40 | NUR ---
12:00 pm This SW attempted to return patients sister Fior call . This SW was unable to connect with [employer], however, was able to leave a voicemail for the patients sister.
[2020-05-12] MEDS: CIPROFLOXACIN IV RTU 400 MG in PREMIX 1 EA IV SCH (17:39)
--- NOTE | 2020-05-12 18:27 | NUR ---
rn notes patient remains on room air, no sob noted, patient denies pain at this time. Some nausea and discomfort from the stomach. NPO currently after KUB results. No more IVF running. KUB done and shows SBO. bed at the lowest setting, call light within reach, side rails up x2. 1l1 sitter at all times.
--- NOTE | 2020-05-12 19:30 | NUR ---
ms rn opening note received patient in bed. a/ox3. tolerating room air. respirations are even and unlabored. no s/s sob noted. patient is c/o pain in abdomen, informed her of npo status with no iv pain medications, informed her will need to call MD to obtain order. patient aware of npo status. in no apparent distress. iv access in right groin triple lumen picc line patent and kathie locked. bed is low and locked, hob elevated in semi fowlers, side rials up x3. call light within reach. will continue to monitor.
[2020-05-12 20:00] VITALS: BP 135/86
--- NOTE | 2020-05-12 21:15 | NUR ---
ms rn note called instructional developer MD Dr. Cooley to inform him patient is in pain. Dx SBO and is currently NPO with only PO meds. MD telephone ordered morphine 2mg Q6hr PRN. order read back noted and carried out.
[2020-05-12] MEDS: METRONIDAZOLE 500MG/ NS 100ML 500 MG in PREMIX 1 EA IV SCH (21:18)
[2020-05-12] MEDS: MORPHINE SULFATE INJ 2 MG/ML DISP.SYRIN IV PRN (21:41)
--- NOTE | 2020-05-12 21:41 | NUR ---
ms rn note administered morphine 2mg for pain 05/29 in abdomen. will continue to monitor.
[2020-05-13] MEDS: CIPROFLOXACIN IV RTU 400 MG in PREMIX 1 EA IV SCH ×2 (05:47→16:40)
[2020-05-13] MEDS: METRONIDAZOLE 500MG/ NS 100ML 500 MG in PREMIX 1 EA IV SCH ×3 (06:46→20:05)
[2020-05-13] MEDS: MORPHINE SULFATE INJ 2 MG/ML DISP.SYRIN IV PRN ×3 (06:46→21:58)
--- NOTE | 2020-05-13 06:46 | NUR ---
ms rn note administered prn morphine 2mg for pain 8/10 in abdomen. bp 155/88 hr 100. will continue to monitor.
[2020-05-13] MEDS: ONDANSETRON HCL/PF 4 MG/2 ML VIAL IVP PRN ×3 (06:54→21:55)
--- NOTE | 2020-05-13 06:56 | NUR ---
ms rn note administered prn zofran 4mg for c/o nausea. will continue to monitor.
--- NOTE | 2020-05-13 07:28 | NUR ---
MS RN OPENING NOTES Received patient awake in bed in no acute signs of distress. Sitter present at bedside. A/o x3. Verbally responsive, no c/o pain or discomforts at this time. On room air, respirations are even and unlabored. NPO status maintained. IV access in right groin triple lumen catheter in place and patent, safety measures in place: bed is low and locked, HOB elevated, side rials up x2. call light within reach. Will continue to monitor pt accordingly.
--- NOTE | 2020-05-13 07:30 | NUR ---
ms rn closing note patient in bed. a/ox3. tolerating room air. no resp distress noted. managed pain with morphine t/o shift. patient maintained npo status. no distress. iv access maintained in right groin triple lumen picc line patent and kathie locked. bed remains low and locked, hob elevated in semi fowlers, side rials up x3. call light within reach. will endorse to next shift.
[2020-05-13 07:31] LABS: BASOPHILS % (AUTO) 0.1 % (0.0-2.0); EOSINOPHILS % (AUTO) 0.3 % (0.0-6.0); HEMATOCRIT 35 % (33-45); HEMOGLOBIN 11.1 g/dL (11.5-14.8); LYMPHOCYTES # (AUTO) 0.9 /CMM (0.8-4.8); LYMPHOCYTES % (AUTO) 16.7 % (20.0-44.0); MEAN CORPUSCULAR HGB CONC 32 g/dl (31.0-36.0); MEAN CORPUSCULAR VOLUME 81 fL (82-100); MONOCYTES # (AUTO) 0.8 /CMM (0.1-1.30); NEUTROPHILS # (AUTO) 3.8 /CMM (1.8-8.9); NEUTROPHILS % (AUTO) 68.9 % (43.0-81.0); PLATELET COUNT (AUTO) 164 /CMM (150-450); RED BLOOD CELL COUNT(AUTO) 4.26 MIL/uL (4.0-5.2); WHITE BLOOD COUNT (AUTO) 5.5 K/uL (4.3-11.0)
[2020-05-13 07:54] LABS: CREATININE 0.9 mg/dL (0.6-1.3); MAGNESIUM 1.7 mg/dL (1.8-2.4); PHOSPHORUS 2.7 mg/dL (2.5-4.9)
[2020-05-13] MEDS: ENSURE ENLIVE CHOC 237 ML CAN PO SCH ×3 (08:00→17:00)
[2020-05-13 08:15] LABS: POTASSIUM 2.8 mmol/L (3.5-5.1)
[2020-05-13] MEDS: DULOXETINE HCL 30 MG CAPSULE.DR PO SCH (08:52)
[2020-05-13] MEDS: HEPARIN SODIUM, PORCINE 5000 UNITS/1 ML VIAL SQ SCH ×2 (09:00→20:21)
[2020-05-13] MEDS: POTASSIUM CL. PREMIX PERIPHER. 50 ML IV SCH ×6 (09:01→15:20)
[2020-05-13] MEDS: Magnesium 1GM/D5W 100ML PREMIX 100 ML IV SCH ×2 (09:01→10:07)
[2020-05-13] MEDS ORDERED: DIATR MEGLU/DIATRIZOATE SODIUM 120 ML BOTTLE (GASTROGRAPHIN) ONE (09:57)
[2020-05-13 10:14] VITALS: BP 110/74
[2020-05-13] MEDS: LORAZEPAM INJ 2 MG/ML VIAL IV PRN (10:46)
--- NOTE | 2020-05-13 10:54 | NUR ---
RN NOTES PT WENT DOWN FOR SMALL BOWEL FOLLOW THROUGH AND BECAME RESTLESS WHILE IN THE RADIOLOGY TABLE. WENT DOWN AND ADMINISTERED PRN ATIVAN 0.5MG/0.25ML IVP @ 1046. WILL CONTINUE TO MONITOR PT.
--- NOTE | 2020-05-13 15:28 | NUR ---
RN NOTES PT C/O NAUSEA AND ABDOMINAL PAIN WITH SCALE OF 8/10. PRN ZOFRAN 4MG/2ML IVP AND MORPHINE 2MG/1ML IVP ADMINISTERED ORDERED. WILL CONTINUE TO MONITOR AND REASSESS PT.
--- NOTE | 2020-05-13 18:36 | NUR ---
MS RN ClOSING NOTES Patient in bed asleep at this time, easily awakens. HOB elevated. Sitter present at bedside. A/o x3. Able to make needs known. On room air, respirations are even and unlabored, no SOB noted throughout the day. Results of small bowel follow through still pending. NPO status maintained. IV access in right groin triple lumen catheter in place and patent Safety measures in place: Bed is low and locked, HOB elevated, side rails up x2 and call light within reach. All needs and care provided well. Will endorse to mine shifter nurse for wil.
--- NOTE | 2020-05-13 19:20 | NUR ---
RN barsursilvestre opening notes Received Pt from morning nurse. Pt is resting in bed comfortably with a sitter at the bedside. Pt is alert and orientedX3. Respiration is normal. No SOB. No S/S of distress noted. R groin triple lumen cath is clean, intact and patent. Pt is status is NPO. Pt verbalized understanding. Safety precautions is maintained. Bed at low position, brakes locked, side rails upX2 and call light is within reach. Will continue to monitor.
[2020-05-13 20:00] VITALS: BP 129/88
[2020-05-13] MEDS: IV NS 0.9% 1,000 ML IV PRN (20:33)
--- NOTE | 2020-05-13 21:55 | NUR ---
RN medsurg notes Pt is complaining of nausea and no vomiting and requesting meds. Administered zofran 4 mg/2 ml/IV push as ordered for nausea. Will continue to monitor. Sitter at the bedside.
--- NOTE | 2020-05-13 21:58 | NUR ---
CHAU nielsen notes Pt is complaining of pain on her abdomen. Administered morphine 2 mg/1 ml/ IV push as ordered for pain per Pt requested. BP 120/73. Pulse 108. Safety precautions is maintained. Sitter at the bedside. Will continue to monitor.
[2020-05-14] MEDS: METRONIDAZOLE 500MG/ NS 100ML 500 MG in PREMIX 1 EA IV SCH ×3 (04:04→20:39)
[2020-05-14] MEDS: CIPROFLOXACIN IV RTU 400 MG in PREMIX 1 EA IV SCH ×2 (05:02→16:46)
[2020-05-14] MEDS: MORPHINE SULFATE INJ 2 MG/ML DISP.SYRIN IV PRN ×4 (05:33→23:15)
--- NOTE | 2020-05-14 06:50 | NUR ---
RN medsurg closing notes Pt is resting in bed comfortably. Pt is alert and orientedX3. Respiration is normal. No SOB. No S/S of distress noted. Sitter at the bedside. VS is stable. Afebrile. Routine meds were given as ordered. R groin triple lumen cath is clean, intact and infusing well NS@ 100 ml/hr. Pt's status is NPO. Kept Pt clean, dry and comfortable. All needs met and attended. Safety precautions is maintained. Bed at low position, brakes locked, HOB elevated, side rails upX3 and call light is within reach. Will endorse to morning nurse for WINTER.
--- NOTE | 2020-05-14 07:31 | NUR ---
MS RN opening notes Received patient asleep in bed, easily awakens. Sitter present at bedside. A/o x3. Able to make needs known, no c/o pain or discomforts at this time. On room air, breathing even and unlabored. NPO status maintained. IV access in right groin triple lumen catheter in place and patent, IVF of NS @ 100ml/hr infusing well. Safety measures in place: Bed is low and locked, HOB elevated, side rails up x2 and call light within reach. Will continue to monitor pt accordingly.
[2020-05-14 07:53] LABS: BASOPHILS % (AUTO) 0.3 % (0.0-2.0); EOSINOPHILS % (AUTO) 0.7 % (0.0-6.0); HEMATOCRIT 35 % (33-45); LYMPHOCYTES # (AUTO) 0.9 /CMM (0.8-4.8); MEAN CORPUSCULAR HGB CONC 32 g/dl (31.0-36.0); MEAN CORPUSCULAR VOLUME 81 fL (82-100); MONOCYTES # (AUTO) 0.8 /CMM (0.1-1.30); MONOCYTES % (AUTO) 16.9 % (2.0-12.0); NEUTROPHILS % (AUTO) 63.1 % (43.0-81.0); PLATELET COUNT (AUTO) 186 /CMM (150-450); RED BLOOD CELL COUNT(AUTO) 4.27 MIL/uL (4.0-5.2); WHITE BLOOD COUNT (AUTO) 4.8 K/uL (4.3-11.0)
[2020-05-14] MEDS: ENSURE ENLIVE CHOC 237 ML CAN PO SCH ×3 (07:56→16:43)
[2020-05-14 08:00] VITALS: BP 115/73
[2020-05-14 08:10] LABS: ALBUMIN 1.7 g/dL (3.4-5.0); BILIRUBIN,TOTAL 0.4 mg/dL (0.2-1.0); CALCIUM, SERUM 7.7 mg/dL (8.5-10.1); CREATININE 0.8 mg/dL (0.6-1.3); MAGNESIUM 1.7 mg/dL (1.8-2.4); PHOSPHORUS 2.5 mg/dL (2.5-4.9); POTASSIUM 2.9 mmol/L (3.5-5.1); TOTAL PROTEIN, SERUM 4.6 g/dL (6.4-8.2)
[2020-05-14] MEDS: Magnesium 1GM/D5W 100ML PREMIX 100 ML IV SCH ×2 (08:37→09:43)
[2020-05-14] MEDS: POTASSIUM CL. PREMIX PERIPHER. 50 ML IV SCH ×10 (08:37→18:28)
[2020-05-14] MEDS: DULOXETINE HCL 30 MG CAPSULE.DR PO SCH (09:00)
[2020-05-14] MEDS: HEPARIN SODIUM, PORCINE 5000 UNITS/1 ML VIAL SQ SCH ×2 (09:20→20:40)
[2020-05-14] MEDS: ONDANSETRON HCL/PF 4 MG/2 ML VIAL IVP PRN (11:47)
--- NOTE | 2020-05-14 12:05 | NUR ---
RN NOTES PT C/O NAUSEA AND ACHING, SHARP ABDOMINAL PAIN WITH SCALE OF 8/10 AFTER PHYSICAL THERAPY. PRN ZOFRAN 4MG/2ML IVP AND MORPHINE 2MG/1ML IVP ADMINISTERED ORDERED. WILL CONTINUE TO MONITOR AND REASSESS PT.
--- NOTE | 2020-05-14 12:20 | NUR ---
RN NOTES STRATEGIC SOURCING CONSULTANT ELIZABETH HERNANDEZ ON UNIT AND REPORTED RESULTS OF CXR, XRAY KUB AND SMALL BOWEL FOLLOW THROUGH. NO NEW ORDER MADE AT THIS TIME. WILL CONTINUE TO MONITOR.
[2020-05-14] MEDS: IV NS 0.9% 1,000 ML IV PRN (15:26)
[2020-05-14 16:00] VITALS: BP 123/86
--- NOTE | 2020-05-14 17:57 | NUR ---
RN NOTES PT GRIMACING IN BED AND C/O ACHING, SHARP ABDOMINAL PAIN WITH SCALE OF 8/10, PRN MORPHINE 2MG/1ML IVP ADMINISTERED 175. WILL CONTINUE TO MONITOR AND REASSESS PT.
--- NOTE | 2020-05-14 18:33 | NUR ---
MS RN ClOSING NOTES Patient in bed and resting at moderate high backrest position. Sitter present at bedside. A/o x3. Able to make needs known. On room air, respirations are even and unlabored, no SOB noted throughout the day. NPO status maintained. IV access in right groin triple lumen catheter in place and patent, IVF of NS @100 ml/hr infusing as ordered. Safety measures in place: Bed is lowes locked position, HOB kept elevated, side rails up x2 and call light within reach. All needs and care attended well. Will endorse to shift manager nurse for WINTER.
--- NOTE | 2020-05-14 19:33 | NUR ---
MS RN OPEN NOTES PATIENT IS SLEEPING. ON RA, NO SOB/ ACUTE RESPIRATORY DISTRESS NOTED. APPEARS COMFORTABLE/ NO COMPLAINTS OF PAIN AT THE MOMENT. BED IS IN LOWEST LOCKED POSITION WITH SIDE RAILS UP X3, SEMI FOWLERS. SITTER AT BEDSIDE. CALL LIGHT IS WITHIN REACH. WILL CONTINUE TO MONITOR.
[2020-05-14 20:00] VITALS: BP 139/89
[2020-05-15] MEDS: IV NS 0.9% 1,000 ML IV PRN (03:35)
[2020-05-15] MEDS: CIPROFLOXACIN IV RTU 400 MG in PREMIX 1 EA IV SCH ×2 (04:05→19:30)
[2020-05-15] MEDS: METRONIDAZOLE 500MG/ NS 100ML 500 MG in PREMIX 1 EA IV SCH (05:13)
[2020-05-15 06:19] LABS: BASOPHILS % (AUTO) 0.4 % (0.0-2.0); HEMATOCRIT 34 % (33-45); HEMOGLOBIN 10.9 g/dL (11.5-14.8); LYMPHOCYTES # (AUTO) 0.9 /CMM (0.8-4.8); LYMPHOCYTES % (AUTO) 19.7 % (20.0-44.0); MEAN CORPUSCULAR HGB CONC 32 g/dl (31.0-36.0); MEAN CORPUSCULAR VOLUME 80 fL (82-100); MONOCYTES # (AUTO) 0.6 /CMM (0.1-1.30); MONOCYTES % (AUTO) 12.6 % (2.0-12.0); NEUTROPHILS % (AUTO) 66.3 % (43.0-81.0); PLATELET COUNT (AUTO) 203 /CMM (150-450); WHITE BLOOD COUNT (AUTO) 4.5 K/uL (4.3-11.0)
--- NOTE | 2020-05-15 06:25 | NUR ---
MS RN CLOSE NOTES PATIENT IS LAYING IN BED. A/O X3-4. ON RA, NO SOB/ ACUTE RESPIRATORY DISTRESS NOTED. IV IN RIGHT GROIN TLC IS PATENT AND INTACT. ALL DUE MEDICATIONS GIVEN. PATIENT KEPT NPO. APPEARS COMFORTABLE/ NO COMPLAINTS OF PAIN AT THE MOMENT. BED IS IN LOWEST LOCKED POSITION [facility] SIDE RAILS UP X3, SEMI FOWLERS. SITTER AT BEDSIDE. CALL LIGHT IS WITHIN REACH. WILL ENDORSE TO AM NURSE.
[2020-05-15 07:04] LABS: ALBUMIN 1.7 g/dL (3.4-5.0); BILIRUBIN,TOTAL 0.4 mg/dL (0.2-1.0); CALCIUM, SERUM 7.3 mg/dL (8.5-10.1); CREATININE 0.8 mg/dL (0.6-1.3); MAGNESIUM 1.5 mg/dL (1.8-2.4); POTASSIUM 3.1 mmol/L (3.5-5.1); TOTAL PROTEIN, SERUM 4.8 g/dL (6.4-8.2)
--- NOTE | 2020-05-15 07:50 | NUR ---
RN OPENING NOTE Patient is sleeping in bed, showing no signs of acute distress or SOB, stable on RA. Right groin TLC running NS @100mls/hour. Bed is in lowest position, side rails x3 in upright position, call light is within reach, fall safety and aspiration precautions enforced. Will continue with plan of care.
[2020-05-15 08:00] VITALS: BP 131/86
[2020-05-15] MEDS: ENSURE ENLIVE CHOC 237 ML CAN PO SCH ×3 (08:00→17:33)
[2020-05-15 08:03] VITALS: BP 131/86
[2020-05-15] MEDS: DULOXETINE HCL 30 MG CAPSULE.DR PO SCH (08:14)
[2020-05-15] MEDS: MORPHINE SULFATE INJ 2 MG/ML DISP.SYRIN IV PRN (08:15)
[2020-05-15] MEDS: HEPARIN SODIUM, PORCINE 5000 UNITS/1 ML VIAL SQ SCH (08:20)
[2020-05-15] MEDS ORDERED: POTASSIUM PHOSPHATE MM 15 MMOL in IV NS 0.9% 250 ML IV SCH (10:00)
[2020-05-15] MEDS: Magnesium 1GM/D5W 100ML PREMIX 100 ML IV SCH ×2 (10:09→11:08)
--- NOTE | 2020-05-15 11:12 | NUR ---
RN NOTE Ok per Dr. More to start patient on regular diet as tolerated.
[2020-05-15] MEDS: POTASSIUM PHOSPHATE MM 7.5 MMOL in IV NS 0.9% 100 ML IV SCH ×2 (12:20→21:03)
[2020-05-15] MEDS: POTASSIUM CL. PREMIX PERIPHER. 50 ML IV SCH ×6 (12:34→18:35)
[2020-05-15] MEDS: METRONIDAZOLE 500 MG TABLET PO SCH ×2 (14:08→21:04)
--- NOTE | 2020-05-15 14:55 | NUR ---
12:00pm This SW returned to this patients room to attempt to finish a homelessness consult requested by patients physician, Sam Parkinson NP. Patient presented to the ED for abdominal pain, patient is currently in room 313-1. Patient is a 59-year-old female. Patient in the past has not been receptive to speaking with this SW. Patient is now alert and oriented x3. Patient reports that she is homeless, that prior to admission patient was in the process of traveling and that she lost her new apartment. Prior patient reported that she was living at [facility] but could not provide an address when asked. Patient currently receives $900 in social security disability. 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 Patient reports she stopped smoking cigarettes 2 years ago. Patient reports that she would like to be referred to a [facility] facility post-discharge to help her as she is blind and has back pain. Patient does not report auditory hallucinations, patient currently reports visual hallucinations of food. Patient states This is because Im hungry, I havent been able to keep food down.. Patient denies suicidal and homicidal ideations. This SW to remain available for all needs regarding this patient.
--- NOTE | 2020-05-15 14:56 | NUR ---
1:45pm This SW received a call from this patients sister Fior . This SW tried to contact Fior in the past couple of days but was unsuccessful. Fior reported that her sister resided in a living facility in [place] but could not provide the name or address. Fior also reported that the patient had some contact with the [facility] but was unaware what came about this. Patients sister also reported that patient became homeless because of life and cards she was dealt with. Patients sister informed this SW that she would like for her sister to be given a walker for her use. This SW thanked the patients sister for calling. Patients sister asked to be given more information if there are any changes on the patient. This SW to remain available for all needs regarding this patient.
[2020-05-15] MEDS: HYDROCODONE/APAP 5/325MG TABLET PO PRN (16:18)
--- NOTE | 2020-05-15 18:47 | NUR ---
RN CLOSING NOTE Patient is sleeping in bed, showing no signs of acute distress or SOB, stable on RA. Right groin TLC running final KCl @ 50cc/hour. Multiple IV attempts to insert peripheral IV and unsuccessful by 2 RNs. Patient refused midline insertion when offered the option. Spoke with pharmacy services representative and ok per pharmacy salesperson to endorse remaining IVPB to PM shift. All patient needs met, all due medications given, patient kept clean and dry throughout shift. Bed is in lowest position, side rails x3 in upright position, call light is within reach, fall safety and aspiration precautions enforced. Will endorse to overnight stocker.
--- NOTE | 2020-05-15 19:30 | NUR ---
ms rn opening note received patient in bed. a/ox3. tolerating room air. respirations are even and unlabored. no s/s sob noted. no c/o pain at this time. in no apparent distress. iv access in right groin triple lumen picc line running cipro 200ml/hr. bed is low and locked, hob elevated in semi fowlers, side rials up x3. call light within reach. will continue to monitor. was endorsed by day RN to give kphos x2bags.
[2020-05-15 20:00] VITALS: BP 100/57
[2020-05-15 20:46] VITALS: BP 100/57
[2020-05-16] MEDS: POTASSIUM PHOSPHATE MM 7.5 MMOL in IV NS 0.9% 100 ML IV SCH (01:20)
[2020-05-16] MEDS: HYDROCODONE/APAP 5/325MG TABLET PO PRN (02:39)
[2020-05-16] MEDS: CIPROFLOXACIN IV RTU 400 MG in PREMIX 1 EA IV SCH ×2 (05:24→17:17)
[2020-05-16] MEDS: METRONIDAZOLE 500 MG TABLET PO SCH ×3 (05:25→21:09)
[2020-05-16] MEDS: ONDANSETRON HCL/PF 4 MG/2 ML VIAL IVP PRN (05:33)
--- NOTE | 2020-05-16 05:33 | NUR ---
ms rn note administered prn zofran 4mg for episode of vomit. will continue to monitor.
--- NOTE | 2020-05-16 06:50 | NUR ---
ms pat salgado note patient in bed. a/ox3. remains tolerating room air. no resp distress noted. managed pain with norco 5/325 and managed nausea with zofran. no distress. iv access maintained in right groin triple lumen picc running tko. bed remain low and locked, hob elevated in semi fowlers, side rials up x3. call light within reach. will endorse to next shift.
[2020-05-16 07:38] LABS: BASOPHILS % (AUTO) 0.3 % (0.0-2.0); EOSINOPHILS % (AUTO) 0.4 % (0.0-6.0); HEMATOCRIT 36 % (33-45); HEMOGLOBIN 11.5 g/dL (11.5-14.8); LYMPHOCYTES % (AUTO) 15.2 % (20.0-44.0); MEAN CORPUSCULAR HGB CONC 32 g/dl (31.0-36.0); MEAN CORPUSCULAR VOLUME 80 fL (82-100); MONOCYTES # (AUTO) 0.5 /CMM (0.1-1.30); MONOCYTES % (AUTO) 7.8 % (2.0-12.0); NEUTROPHILS # (AUTO) 5.2 /CMM (1.8-8.9); NEUTROPHILS % (AUTO) 76.3 % (43.0-81.0); PLATELET COUNT (AUTO) 241 /CMM (150-450); RED BLOOD CELL COUNT(AUTO) 4.49 MIL/uL (4.0-5.2); WHITE BLOOD COUNT (AUTO) 6.8 K/uL (4.3-11.0)
[2020-05-16 07:43] LABS: ALBUMIN 1.8 g/dL (3.4-5.0); BILIRUBIN,TOTAL 0.3 mg/dL (0.2-1.0); CALCIUM, SERUM 7.5 mg/dL (8.5-10.1); CREATININE 0.7 mg/dL (0.6-1.3); MAGNESIUM 1.4 mg/dL (1.8-2.4); PHOSPHORUS 2.3 mg/dL (2.5-4.9); POTASSIUM 3.4 mmol/L (3.5-5.1); TOTAL PROTEIN, SERUM 5.1 g/dL (6.4-8.2)
[2020-05-16] MEDS: ENSURE ENLIVE CHOC 237 ML CAN PO SCH ×4 (08:00→17:24)
--- NOTE | 2020-05-16 08:05 | NUR ---
MS RN OPENING NOTES PATIENT IS ASLEEP IN BED. NO SIGNS OF DISTRESS IN ROOM AIR. IV R GROIN INTACT. NO COMPLAIN OF PAIN OR DISCOMFORT AT THIS MOMENT. SAFETY MEASURES ARE BEING APPLIED, BED IS IN LOW POSITION SIDE RAILS UP X 2 FOR SAFETY. CALL LIGHT WITHIN REACH. WILL CONTINUE TO MONITOR.
[2020-05-16 08:25] VITALS: BP 101/70
[2020-05-16] MEDS: DULOXETINE HCL 30 MG CAPSULE.DR PO SCH ×2 (09:00→09:40)
[2020-05-16] MEDS: NEUTRA PHOS 1 POWD.PACKET PO SCH ×2 (09:41→17:25)
[2020-05-16] MEDS: POTASSIUM CHLORIDE 20 MEQ TAB.PRT.SR PO SCH ×2 (09:41→10:00)
[2020-05-16] MEDS: Magnesium 1GM/D5W 100ML PREMIX 100 ML IV SCH ×2 (09:41→11:06)
--- NOTE | 2020-05-16 10:58 | NUR ---
PATIENT REFUSED TO TAKE KDUR PO BECAUSE IT CAUSES HER NAUSEA AND VOMITING LET ELIZABETH SALES PERSON KNOW, SHE ORDERED POTASSIUM IV. NOTED AND CARRIED OUT.
[2020-05-16] MEDS ORDERED: POTASSIUM CHLORIDE 10 MEQ/50 ML PREMIXED IVPB FOR PERIPHERAL LINE IV SCH (11:00)
[2020-05-16] MEDS: POTASSIUM CL. PREMIX PERIPHER. 50 ML IV SCH ×2 (12:08→12:56)
--- NOTE | 2020-05-16 17:27 | NUR ---
11:45 am This SW called [id number] and spoke to a marketing sales representative who provided information on how to cancel this patients debit card. This patient is visually impaired (blind) and this SW wanted information on company protocol. This SW was informed that the patient needs to be on the call and needs to provide verbal consent to any individual to provide more information
--- NOTE | 2020-05-16 17:27 | NUR ---
10:50am This SW met with the patient at bedside. Patient requested social insurance adviser as the patient lost a debit card and would like assistance on how to cancel it. This SW to follow up on the [employer] bank to find out more information.
--- NOTE | 2020-05-16 17:27 | NUR ---
11am This SW consulted with Luis Moses LCSW about this patients request. Luis Moses LCSW assessed this request and stated that this SW would need to contact the bank and find out the what their protocol is for assisting visually impaired individuals
[2020-05-16 17:36] VITALS: BP 100/63
--- NOTE | 2020-05-16 19:30 | NUR ---
MS RN CLOSING NOTES PATIENT IS ASLEEP IN BED. NO SIGNS OF DISTRESS IN ROOM AIR. IV R GROIN INTACT. NO COMPLAIN OF PAIN OR DISCOMFORT AT THIS MOMENT. PATIENT REMAINED STABLE THROUGH OUT SHIFT. PATIENT KEPT CLEAN AND DRY. ALL NEEDS, CARE, TREATMENT AND MEDICATIONS ADMINISTERED ANTICIPATED PER ORDER. SAFETY MEASURES ARE APPLIED, BED IN LOW POSITION, LOCKED SIDE RAILS UP X 2 FOR SAFETY. CALL LIGHT WITHIN REACH WILL ENDORSE TO THE BAILER OPERATORS SUPERVISOR NURSE.
--- NOTE | 2020-05-16 19:38 | NUR ---
MS/RN OPENING NOTES: RECEIVED PATIENT RESTING IN BED. A/OX3. NO SOB NOTED. NO SIGNS OF DISTRESS IN ROOM AIR. NO C/O PAIN AT THIS TIME. IV R GROIN INTACT. BSC PRESENT IN THE ROOM. PT ABLE TO AMBULATE. SAFETY MEASURES ARE IMPLEMENTED. BED IS IN LOW, LOCKED POSITION WITH SIDE RAILS UP X 2. CALL LIGHT WITHIN REACH. WILL CONTINUE TO MONITOR ACCORDINGLY.
[2020-05-16 20:00] VITALS: BP 109/75
[2020-05-17] MEDS: HYDROCODONE/APAP 5/325MG TABLET PO PRN ×3 (00:07→20:27)
--- NOTE | 2020-05-17 00:07 | NUR ---
MS/RN NOTES: PT REPORTED PAIN 7 OUT OF 10 ON HER BACK. REQUESTED PAIN MED. VSS. ADMINISTERED NORCO 5/325 PO PRN. TOLERATED WELL. WILL CONTINUE MONITORING.
[2020-05-17] MEDS: CIPROFLOXACIN IV RTU 400 MG in PREMIX 1 EA IV SCH ×2 (04:11→16:58)
[2020-05-17] MEDS: METRONIDAZOLE 500 MG TABLET PO SCH ×3 (04:13→20:26)
--- NOTE | 2020-05-17 07:30 | NUR ---
MS RN OPENING NOTES PATIENT IS A/O X 4 AWAKE WITH NO SIGNS OF DISTRESS AND NO SOB IN ROOM AIR. MIDLINE IN THE R GROIN AREA INTACT. PATIENT HAS NO COMPLAINTS OF PAIN AT THIS MOMENT. SAFETY MEASURES ARE APPLIED BED IS IN LOW POSITION, SIDE RAILS UP X 2 FOR SAFETY. CALL LIGHT WITHIN REACH. WILL CONTINUE TO MONITOR.
--- NOTE | 2020-05-17 07:37 | NUR ---
MS/RN CLOSING NOTES: PATIENT REMAINS IN BED. A/OX3. NO SOB NOTED. NO SIGNS OF DISTRESS IN ROOM AIR. NO C/O PAIN AT THIS TIME. IV R GROIN INTACT. BSC PRESENT IN THE ROOM. SAFETY MEASURES KEPT IN PLACE. BED IS IN LOW, LOCKED POSITION WITH SIDE RAILS UP X 2. CALL LIGHT WITHIN REACH. ENDORSED TO DAY SHIFT FOR WINTER.
[2020-05-17 08:00] VITALS: BP 97/54
[2020-05-17] MEDS: DULOXETINE HCL 30 MG CAPSULE.DR PO SCH (09:00)
[2020-05-17] MEDS: ENSURE ENLIVE CHOC 237 ML CAN PO SCH ×3 (09:22→17:08)
[2020-05-17 11:11] LABS: BASOPHILS % (AUTO) 0.3 % (0.0-2.0); EOSINOPHILS % (AUTO) 0.3 % (0.0-6.0); HEMATOCRIT 37 % (33-45); HEMOGLOBIN 11.8 g/dL (11.5-14.8); LYMPHOCYTES % (AUTO) 19.6 % (20.0-44.0); MEAN CORPUSCULAR HGB CONC 32 g/dl (31.0-36.0); MEAN CORPUSCULAR VOLUME 81 fL (82-100); MONOCYTES # (AUTO) 0.5 /CMM (0.1-1.30); MONOCYTES % (AUTO) 10.6 % (2.0-12.0); NEUTROPHILS # (AUTO) 3.6 /CMM (1.8-8.9); NEUTROPHILS % (AUTO) 69.2 % (43.0-81.0); PLATELET COUNT (AUTO) 257 /CMM (150-450); WHITE BLOOD COUNT (AUTO) 5.2 K/uL (4.3-11.0)
[2020-05-17 11:25] LABS: CALCIUM, SERUM 7.9 mg/dL (8.5-10.1); CREATININE 0.7 mg/dL (0.6-1.3); POTASSIUM 3.1 mmol/L (3.5-5.1)
[2020-05-17 11:31] LABS: BILIRUBIN,TOTAL 0.2 mg/dL (0.2-1.0); MAGNESIUM 1.5 mg/dL (1.8-2.4); PHOSPHORUS 2.3 mg/dL (2.5-4.9); TOTAL PROTEIN, SERUM 5.3 g/dL (6.4-8.2)
[2020-05-17] MEDS ORDERED: K PHOS NEUTRAL 250 MG TABLET PO ONE (12:30)
[2020-05-17 16:00] VITALS: BP 98/67
[2020-05-17] MEDS: METOCLOPRAMIDE HCL 10 MG/10 ML UDC PO SCH ×2 (17:07→23:57)
[2020-05-17] MEDS: ERYTHROMYCIN ETHYLSUCCINATE 200 MG/5 ML SUSPENSION PO SCH ×2 (17:42→23:57)
--- NOTE | 2020-05-17 18:00 | NUR ---
R GROIN PICC LINE DRESSING CHANGE WITH TEGADERM WITH NO SIGNS OF BLEEDING LOCKED AND INTACT.
--- NOTE | 2020-05-17 18:33 | NUR ---
MS RN CLOSING NOTES PATIENT IS A/O X 4 AWAKE WITH NO SIGNS OF DISTRESS AND NO SOB IN ROOM AIR. MIDLINE IN THE R GROIN AREA INTACT. PATIENT HAS NO COMPLAINTS OF PAIN AT THIS MOMENT. PATIENT REMAINED STABLE THROUGH OUT SHIFT. PATIENT KEPT CLEAN AND DRY. ALL NEEDS, CARE, TREATMENT AND MEDICATIONS ADMINISTERED ANTICIPATED PER ORDER. SAFETY MEASURES ARE APPLIED. BED IS IN LOWEST POSITION LOCKED WITH SIDE RAILS UP X 2 FOR SAFETY. WILL [id number] TO THE NEXT PERSONAL INJURY ATTORNEY.
--- NOTE | 2020-05-17 19:45 | NUR ---
MS RN OPENING NOTES: RECEIVED PATIENT IN THE BEDSIDE COMMODE, HAD BM LARGE AMOUNT, WATERY, BROWNISH COLOR. ASSISTED BACK TO THE BED. CALL LIGHT WITHIN REACH. BED ALARM ON. BED IN LOWEST AND LOCKED POSITION. PATIENT STATES SHE IS WEAK, INSTRUCTED TO CALL FOR ASSISTANCE,PATIENT VERBALIZED UNDERSTANDING. HOB ELEVATED. GIVEN SNACK. RIGHT GROIN CENTRAL LINE DRESSING CHANGED BY LESLIE FRANK.
[2020-05-17 20:00] VITALS: BP 101/46
[2020-05-17] MEDS ORDERED: CIPROFLOXACIN HCL 250 MG TABLET PO SCH (21:00)
[2020-05-17] MEDS: Z GUARD REMEDY 2 OZ OINT TP PRN (23:58)
[2020-05-18] MEDS: HYDROCODONE/APAP 5/325MG TABLET PO PRN ×4 (01:36→22:14)
[2020-05-18] MEDS: METRONIDAZOLE 500 MG TABLET PO SCH ×3 (04:47→22:14)
[2020-05-18] MEDS: CIPROFLOXACIN IV RTU 400 MG in PREMIX 1 EA IV SCH ×2 (04:47→17:07)
[2020-05-18] MEDS: METOCLOPRAMIDE HCL 10 MG/10 ML UDC PO SCH ×3 (05:34→17:07)
--- NOTE | 2020-05-18 05:53 | NUR ---
MS RN CLOSING NOTES: PATIENT IN BED, ASLEEP, AROUSABLE, NO SOB NOTED, CALL LIGHT WITHIN REACH. BED ALARM ON. BED IN LOWEST AND LOCKED POSITION. ABLE TO GO TO THE BEDSIDE COMMODE WITH STANDBY ASSIST ONLY. HAD LARGE BM LAST NIGHT, WATERY. NO NAUSEA AND VOMITTING NOTED. MISSING MED ERYTHROMYCIN LIQUID IS NOT AVAILABLE AT THIS TIME, CHARGE NURSE TREVER AWARE, AND SHE SAID TO CALL THE PHARMACY TODAY AT [phone].
[2020-05-18] MEDS: ERYTHROMYCIN ETHYLSUCCINATE 200 MG/5 ML SUSPENSION PO SCH ×3 (06:00→17:07)
[2020-05-18] MEDS: Z GUARD REMEDY 2 OZ OINT TP PRN (06:24)
--- NOTE | 2020-05-18 06:52 | NUR ---
CALLED THE PHARMACY AND TALKED TO JUAN RE: MISSING MED ERYTHROMYCIN LIQUID.
--- NOTE | 2020-05-18 07:31 | NUR ---
MS RN OPENING NOTES PATIENT IS A/O X 4 AWAKE WITH NO SIGNS OF DISTRESS AND NO SOB IN ROOM AIR. PICC LINE IN THE R GROIN AREA INTACT. PATIENT HAS NO COMPLAINTS OF PAIN AT THIS MOMENT. SAFETY MEASURES ARE APPLIED BED IS IN LOW POSITION, SIDE RAILS UP X 2 FOR SAFETY. CALL LIGHT WITHIN REACH. REMINDED THE PATIENT TO CALL FOR ASSISTANCE WHEN NEEDING TO USE THE BEDSIDE COMMODE. WILL CONTINUE TO MONITOR.
[2020-05-18 08:00] VITALS: BP 94/67
[2020-05-18] MEDS: DULOXETINE HCL 30 MG CAPSULE.DR PO SCH (08:49)
[2020-05-18] MEDS: ENSURE ENLIVE CHOC 237 ML CAN PO SCH ×3 (08:50→17:08)
[2020-05-18] MEDS: CALCIUM CARB 600MG /VIT D 1 EACH TABLET PO SCH (08:57)
[2020-05-18] MEDS ORDERED: K PHOS NEUTRAL 250 MG TABLET PO ONE (12:00)
[2020-05-18] MEDS: ACETAMINOPHEN 325 MG TABLET PO PRN (12:53)
[2020-05-18 16:00] VITALS: BP 101/57
--- NOTE | 2020-05-18 19:15 | NUR ---
MS RN OPENING NOTES: RECEIVED PATIENT IN BED, AWAKE, A/O X4. NO SOB NOTED. NO COMPLAIN OF PAIN. CALL LIGHT WITHIN REACH. BED ALARM ON. BED IN LOWEST AND LOCKED POSITION. HAD BM 2X WATERY IN THE DAYSHIFT PER REPORT.
--- NOTE | 2020-05-18 19:25 | NUR ---
MS RN CLOSING NOTES PATIENT IS A/O X 4 AWAKE WITH NO SIGNS OF DISTRESS AND NO SOB IN ROOM AIR. PICC LINE IN THE R GROIN AREA INTACT. PATIENT HAS NO COMPLAINTS OF PAIN AT THIS MOMENT. PATIENT REMAINED STABLE THROUGH OUT SHIFT. PATIENT KEPT CLEAN AND DRY. ALL NEEDS, CARE, TREATMENT AND MEDICATIONS ADMINISTERED ANTICIPATED PER ORDER. SAFETY MEASURES ARE APPLIED, BED IS IN LOW POSITION WITH SIDE RAILS UP X 2 FOR SAFETY. CALL LIGHT WITHIN REACH. WILL ENDORSE TO THE GOLF COURSE PATROLLER NURSE.
[2020-05-18 20:00] VITALS: BP 98/56
[2020-05-19] MEDS: METOCLOPRAMIDE HCL 10 MG/10 ML UDC PO SCH ×5 (00:15→17:19)
[2020-05-19] MEDS: ERYTHROMYCIN ETHYLSUCCINATE 200 MG/5 ML SUSPENSION PO SCH ×5 (00:15→17:20)
[2020-05-19] MEDS: CIPROFLOXACIN IV RTU 400 MG in PREMIX 1 EA IV SCH ×2 (05:41→17:20)
[2020-05-19] MEDS: METRONIDAZOLE 500 MG TABLET PO SCH ×5 (05:41→21:45)
[2020-05-19] MEDS: HYDROCODONE/APAP 5/325MG TABLET PO PRN ×4 (05:47→21:46)
--- NOTE | 2020-05-19 06:14 | NUR ---
MS RN CLOSING NOTES: PATIENT IN BED, AWAKE, A/O X4. NO SOB NOTED. COMPLAINED OF ABDOMINAL PAIN, NORCO 1 TAB PO GIVEN FOR PAIN. CALL LIGHT WITHIN REACH. BED ALARM ON. BED IN LOWEST AND LOCKED POSITION. HOB ELEVATED AT ALL TIMES. RESTED THROUGHOUT THE NIGHT. HAD BM 2X DURING THE SHIFT. ENCOURAGED TO AMBULATE OUTSIDE THE ROOM.
[2020-05-19 06:27] LABS: BASOPHILS % (AUTO) 0.4 % (0.0-2.0); EOSINOPHILS % (AUTO) 0.5 % (0.0-6.0); HEMATOCRIT 34 % (33-45); LYMPHOCYTES # (AUTO) 0.9 /CMM (0.8-4.8); LYMPHOCYTES % (AUTO) 18.1 % (20.0-44.0); MEAN CORPUSCULAR HGB CONC 33 g/dl (31.0-36.0); MEAN CORPUSCULAR VOLUME 81 fL (82-100); MONOCYTES # (AUTO) 0.6 /CMM (0.1-1.30); MONOCYTES % (AUTO) 11.8 % (2.0-12.0); NEUTROPHILS # (AUTO) 3.3 /CMM (1.8-8.9); NEUTROPHILS % (AUTO) 69.2 % (43.0-81.0); PLATELET COUNT (AUTO) 315 /CMM (150-450); RED BLOOD CELL COUNT(AUTO) 4.15 MIL/uL (4.0-5.2); WHITE BLOOD COUNT (AUTO) 4.8 K/uL (4.3-11.0)
[2020-05-19 06:36] LABS: ALBUMIN 1.9 g/dL (3.4-5.0); BILIRUBIN,TOTAL 0.2 mg/dL (0.2-1.0); CALCIUM, SERUM 7.1 mg/dL (8.5-10.1); CREATININE 0.9 mg/dL (0.6-1.3); MAGNESIUM 1.3 mg/dL (1.8-2.4); PHOSPHORUS 2.5 mg/dL (2.5-4.9); POTASSIUM 2.9 mmol/L (3.5-5.1); TOTAL PROTEIN, SERUM 5.2 g/dL (6.4-8.2)
[2020-05-19] MEDS: ENSURE ENLIVE CHOC 237 ML CAN PO SCH ×3 (08:00→17:20)
[2020-05-19 08:49] VITALS: BP 118/59
[2020-05-19] MEDS: DULOXETINE HCL 30 MG CAPSULE.DR PO SCH (08:52)
[2020-05-19] MEDS: CALCIUM CARB 600MG /VIT D 1 EACH TABLET PO SCH (08:52)
[2020-05-19] MEDS ORDERED: POTASSIUM CHLORIDE 20 MEQ TAB.PRT.SR PO SCH (10:00)
[2020-05-19] MEDS ORDERED: Magnesium 1GM/D5W 100ML PREMIX 100 ML IV SCH (10:12)
[2020-05-19] MEDS: Magnesium 1GM/D5W 100ML PREMIX 100 ML IV SCH ×4 (10:14→13:49)
[2020-05-19] MEDS ORDERED: POTASSIUM CHLORIDE 20 MEQ POWDER PACKET PO ONE ×3 (10:30→17:00)
--- NOTE | 2020-05-19 10:51 | NUR ---
m/shahzad morris: visit seen and examined by dr. guzman with order for d'c planning to assisted living facility per pt's request. Addendum: 05/19/20 at 1052 by BURT PATTON LVN pt refused long-term and snf.
--- NOTE | 2020-05-19 12:30 | NUR ---
m/s embossing tool setter: notes report given to jaylen (pat) for continuity of care.
--- NOTE | 2020-05-19 12:45 | NUR ---
MS RN NOTES PATIENT RECEIVED REPORT FROM IRINEO DALLAS. PATIENT IN BED AT THIS TIME, ON ROOM AIR WITH NO SIGNS OF RESPIRATORY DISTRESS, NO SOB NOTED, AND NON-LABORED EVEN BREATHING. ALERT AND ORIENTED X 4. WILL CONTINUE WITH PLAN OF CARE AND CONTINUE TO MONITOR PATIENT.
--- NOTE | 2020-05-19 15:04 | NUR ---
MS RN NOTES INFORMED PATIENT ABOUT SCHEDULE POTASSIUM CHLORIDE 40meq PO ORDERED, AND PATIENT REFUSED MEDICATION. EDUCATED THE RISKS AND BENEFITS OF THE MEDICATION MULTIPLE TIMES AND PATIENT KEPT REFUSING. WILL CONTINUE TO MONITOR PATIENT AT THIS TIME.
[2020-05-19 16:55] VITALS: BP 91/53
--- NOTE | 2020-05-19 18:21 | NUR ---
MS RN NOTES PATIENT IN BED RESTING COMFORTABLY ALERT AND ORIENTED. ON ROOM AIR WITH NO SIGNS OF RESPIRATORY DISTRESS AT THIS TIME, WITH EVEN NON-LABORED BREATHING, AND NO SOB NOTED AT THIS TIME. PATIENT SKIN KEPT CLEAN, WARM AND DRY TO TOUCH. IV ACCESS INTACT AN PATENT ON RIGHT GROIN, TRIPLE LUMEN. MET ALL OF PATIENT'S NEEDS, DENIES PAIN OR DISCOMFORT AT THIS TIME. SAFETY PRECAUTIONS IMPLEMENTED WITH BED LOCKED, BED IN THE LOWEST POSITION, BILATERAL SIDE RAILS UP, AND CALL LIGHT WITHIN EASY REACH OF THE PATIENT. WILL ENDORSE PLAN OF CARE TO UPCOMING NURSE.
--- NOTE | 2020-05-19 19:30 | NUR ---
MS/RN OPENING NOTES RECEIVED PATIENT SLEEPING IN BED. PATIENT IS ALERT AND ORIENTED X 4. PATIENT IS ON ROOM AIR TOLERATING WELL. NO SIGNS OF SOB OR RESPIRATORY DISTRESS NOTED. PATIENT HAS RIGHT GROIN IV ACCESS INTACT. PATIENT STATES NO PAIN AT THIS TIME. SAFETY MEASURES ARE IN PLACE, BED IS LOCKED AND PLACED IN THE LOW POSITION, SIDE RAILS UP X 2. CALL LIGHT IS WITHIN REACH. WILL CONTINUE TO MONITOR DURING SHIFT.
[2020-05-19 20:00] VITALS: BP 101/56
--- NOTE | 2020-05-19 21:50 | NUR ---
MS/RN NOTES PATIENT STATED PAIN COMING FROM HER LOWER BUTTOCK AREA. NO RELIEF WITH REPOSITIONING. PATIENT WAS GIVEN NORCO 5 -325 MG PO. WILL CONTINUE TO MONITOR.
[2020-05-19] MEDS: MAG HYDROX/AL HYDROX/SIMETH 30 ML UDC PO PRN (22:49)
--- NOTE | 2020-05-19 22:50 | NUR ---
MS/RN NOTES PATIENT STATES SHE WAS HAVING STOMACH ISSUES AND WANTED SOMETHING TO HELP RELIEVE UPSET STOMACH. MAALOX 30 ML PO WAS GIVEN. WILL CONTINUE TO MONITOR.
[2020-05-20] MEDS: CIPROFLOXACIN IV RTU 400 MG in PREMIX 1 EA IV SCH (04:57)
[2020-05-20] MEDS: METRONIDAZOLE 500 MG TABLET PO SCH (05:00)
[2020-05-20] MEDS: HYDROCODONE/APAP 5/325MG TABLET PO PRN ×2 (05:01→20:45)
[2020-05-20] MEDS: MAG HYDROX/AL HYDROX/SIMETH 30 ML UDC PO PRN ×3 (05:01→20:45)
[2020-05-20 05:59] LABS: CHLORIDE,URINE RANDOM 60 mmol/L (55-125); POTASSIUM RNDM,URINE 18 mmol/L (25-125); URINE SODIUM, RANDOM 44 mmol/l (40-220)
[2020-05-20] MEDS: METOCLOPRAMIDE HCL 10 MG/10 ML UDC PO SCH ×5 (06:00→23:43)
[2020-05-20] MEDS: ERYTHROMYCIN ETHYLSUCCINATE 200 MG/5 ML SUSPENSION PO SCH ×5 (06:00→23:43)
[2020-05-20 06:02] LABS: OSMOLALITY,URINE 244 mOS/kg (340-1090)
--- NOTE | 2020-05-20 06:55 | NUR ---
MS/RN CLOSING NOTES PATIENT RESTING IN BED. PATIENT IS ALERT AND ORIENTED X 4. PATIENT IS ON ROOM AIR TOLERATING WELL. NO SIGNS OF SOB OR RESPIRATORY DISTRESS NOTED. PATIENT HAS RIGHT GROIN IV ACCESS INTACT TKO. PATIENT STATES NO PAIN AT THIS TIME. PATIENT DID NOT WANT TO TAKE SCHEDULED PO MEDS DURING SHIFT, STATING THEY WERE GIVING HER AN UPSET STOMACH. ALL PATIENT NEEDS HAVE BEEN MET DURING SHIFT. SAFETY MEASURES ARE IN PLACE, BED IS LOCKED AND PLACED IN THE LOW POSITION, SIDE RAILS UP X 2. CALL LIGHT IS WITHIN REACH. WILL ENDORSE CARE TO DAY SHIFT.
[2020-05-20 07:32] LABS: CREATININE 0.7 mg/dL (0.6-1.3); MAGNESIUM 1.9 mg/dL (1.8-2.4); POTASSIUM 3.4 mmol/L (3.5-5.1)
[2020-05-20 08:00] VITALS: BP 96/50
--- NOTE | 2020-05-20 08:00 | NUR ---
RN NOTES RECEIVED PATIENT IN THE BED A/O X4, ROOM AIR, NO ACUTE RESPIRATORY DISTRESS, V/S TAKEN BP 96/50,P-98. PATIENT HAS IV ACCESS PICC LINE ON RIGHT GROIN AREA INTACT, SKIN ASSESSMENT DONE, BRUISE ON RIGHT LOWER REGION OF ABDOMEN, PATIENT BLIND. TOLERATED BREAKFAST 65%. CALL LIGHT WITHIN TO REACH. CONTINUED MONITORING .
[2020-05-20] MEDS: ENSURE ENLIVE CHOC 237 ML CAN PO SCH ×3 (08:46→17:00)
[2020-05-20] MEDS: CALCIUM CARB 600MG /VIT D 1 EACH TABLET PO SCH (08:48)
[2020-05-20] MEDS: DULOXETINE HCL 30 MG CAPSULE.DR PO SCH ×2 (08:48→08:51)
--- NOTE | 2020-05-20 08:51 | NUR ---
RN NOTES PATIENT SELECTIVE WITH SCHEDULED MEDICATION, V/S TAKE BP 88/49 AT THIS TIME P-103. PATIENT TALKING SELF, SINGING, BLIND ON BOTH EYES. CALL LIGHT WITHIN TO REACH, ABLE TO TURN AD REPOSTION SELF IN THE BED, USING BEDSIDE COMMODE WITH ASSIST.
[2020-05-20] MEDS: POTASSIUM CHLORIDE 20 MEQ TAB.PRT.SR PO SCH ×3 (10:32→12:00)
--- NOTE | 2020-05-20 11:11 | NUR ---
RN notes: administered Maalox 30mol PO PRN for stomach ache per pt request
[2020-05-20] MEDS: ACETAMINOPHEN 325 MG TABLET PO PRN (11:22)
--- NOTE | 2020-05-20 11:22 | NUR ---
rn notes administered Tylenol 650 mg po prn for stomachache per patient request.
[2020-05-20] MEDS: DICYCLOMINE HCL 10 MG CAPSULE PO SCH ×2 (13:00→17:00)
--- NOTE | 2020-05-20 14:50 | NUR ---
10:20am This SW received a call from [place] on Med Surg 3. Patient wants to speak with a social secretary. This SW to speak with the patient.
--- NOTE | 2020-05-20 14:51 | NUR ---
10:25am This SW spoke with the patient regarding the patients request of canceling her debit card and paying her phone bill. This SW re-informed the patient that it is outside of this [facility] scope of practice to manage patients personal finances, and that Patient will have to follow-up on her own once discharged. Patient asked this SW about placement post-discharge. This SW informed her that case management is trying to secure her a bed in an independent living facility. Patient expressed happiness stating Oh good!. This SW to remain available for all needs regarding this patient.
[2020-05-20 16:00] VITALS: BP 88/39
--- NOTE | 2020-05-20 18:30 | NUR ---
RN NOTES PT SELECTIVE W/PILL MEDICATION, SCHEDULED HOSPITALIST AWARE PT REFUSED PAIN AT THIS TIME, PT TOLERATED DINNER 100% AND ENCOURAGED TO INCREASE FLUID INTAKE, PT HAS RIGHT FEMORAL PICC LINE INTACT, ASSIST PT TO BEDSIDE COMMODE SAFETY PRECAUTION MAINTAINED AT ALL THE TIME, BED ALARM ON. CALL LIGHT W/IN REACH. ENDORSED TO ONCOMING RN FOR F/U
--- NOTE | 2020-05-20 19:30 | NUR ---
MS/RN OPENING NOTES RECEIVED PATIENT RESTING IN BED. PATIENT IS ALERT AND ORIENTED X 4. PATIENT IS ON ROOM AIR TOLERATING WELL. NO SIGNS OF SOB OR RESPIRATORY DISTRESS NOTED. PATIENT HAS RIGHT GROIN IV ACCESS INTACT FLUSHING WELL. PATIENT STATED SHE DOES NOT WANT TO TAKE HER PO ABX MEDS THIS EVENING. RISK AND BENEFITS OF NOT TAKING ABX MEDS HAVE BEEN EXPLAINED, WILL TRY AGAIN LATER TONIGHT. SAFETY MEASURES ARE IN PLACE, BED IS LOCKED AND PLACED IN THE LOW POSITION, SIDE RAILS UP X 3. CALL LIGHT IS WITHIN REACH. WILL CONTINUE TO MONITOR DURING SHIFT.
[2020-05-20 19:31] VITALS: BP 100/52
[2020-05-20 20:00] VITALS: BP 101/87
[2020-05-20 20:40] VITALS: BP 101/57
[2020-05-20] MEDS: LORAZEPAM INJ 2 MG/ML VIAL IV PRN (21:32)
--- NOTE | 2020-05-20 21:35 | NUR ---
MS/RN NOTES PATIENT WAS FEELING VERY AGITATED AND RESTLESS, STARTING TO YELL AND CRY OUT LOUD. PATIENT STATES SHE WANTED SOMETHING TO HELP HER CALM DOWN. ATIVAN 0.5 MG IV WAS GIVEN. WILL CONTINUE TO MONITOR.
[2020-05-21] MEDS: MAG HYDROX/AL HYDROX/SIMETH 30 ML UDC PO PRN ×2 (02:58→16:13)
[2020-05-21] MEDS: HYDROCODONE/APAP 5/325MG TABLET PO PRN ×3 (02:59→16:18)
--- NOTE | 2020-05-21 03:00 | NUR ---
MS/RN NOTES PATIENT WAS EXPERIENCING PAIN IN ABDOMINAL AREA AND LOWER BACK. PATIENT WAS GIVEN NORCO 5-325 MG PO. PATIENT WAS COMPLAINING OF UPSET STOMACH AND WAS GIVEN MAALOX 30 ML PO. WILL CONTINUE TO MONITOR.
[2020-05-21] MEDS: ERYTHROMYCIN ETHYLSUCCINATE 200 MG/5 ML SUSPENSION PO SCH ×2 (06:00→12:00)
[2020-05-21] MEDS: METOCLOPRAMIDE HCL 10 MG/10 ML UDC PO SCH ×2 (06:00→12:00)
--- NOTE | 2020-05-21 06:51 | NUR ---
MS/RN CLOSING NOTES PATIENT RESTING IN BED. PATIENT IS ALERT AND ORIENTED X 4. PATIENT IS ON ROOM AIR TOLERATING WELL. NO SIGNS OF SOB OR RESPIRATORY DISTRESS NOTED. PATIENT HAS RIGHT GROIN IV ACCESS INTACT FLUSHING WELL. PATIENT STATED SHE DOES NOT WANT TO TAKE HER PO ABX MEDS THIS MORNING. RISK AND BENEFITS OF NOT TAKING ABX MEDS HAVE BEEN EXPLAINED. PATIENT IS STILL SELECTIVE WITH MEDICATIONS. ALL PATIENT NEEDS HAVE BEEN MET DURING SHIFT. SAFETY MEASURES ARE IN PLACE, BED IS LOCKED AND PLACED IN THE LOW POSITION, SIDE RAILS UP X 3. CALL LIGHT IS WITHIN REACH. WILL ENDORSE CARE TO DAY SHIFT.
[2020-05-21 08:00] VITALS: BP 99/65
[2020-05-21] MEDS: DICYCLOMINE HCL 10 MG CAPSULE PO SCH ×3 (08:57→12:02)
[2020-05-21] MEDS: DULOXETINE HCL 30 MG CAPSULE.DR PO SCH ×2 (08:58→09:00)
[2020-05-21] MEDS: CALCIUM CARB 600MG /VIT D 1 EACH TABLET PO SCH (08:58)
--- NOTE | 2020-05-21 08:58 | NUR ---
GIVEN NORCO FOR STOMACH PAIN.
[2020-05-21] MEDS: ENSURE ENLIVE CHOC 237 ML CAN PO SCH ×2 (09:04→12:02)
[2020-05-21 09:48] LABS: BASOPHILS % (AUTO) 0.5 % (0.0-2.0); EOSINOPHILS % (AUTO) 0.5 % (0.0-6.0); HEMATOCRIT 31 % (33-45); HEMOGLOBIN 10.1 g/dL (11.5-14.8); LYMPHOCYTES # (AUTO) 1.2 /CMM (0.8-4.8); LYMPHOCYTES % (AUTO) 31.3 % (20.0-44.0); MEAN CORPUSCULAR HGB CONC 33 g/dl (31.0-36.0); MEAN CORPUSCULAR VOLUME 81 fL (82-100); MONOCYTES # (AUTO) 0.6 /CMM (0.1-1.30); MONOCYTES % (AUTO) 15.1 % (2.0-12.0); NEUTROPHILS # (AUTO) 1.9 /CMM (1.8-8.9); NEUTROPHILS % (AUTO) 52.6 % (43.0-81.0); PLATELET COUNT (AUTO) 402 /CMM (150-450); RED BLOOD CELL COUNT(AUTO) 3.84 MIL/uL (4.0-5.2); WHITE BLOOD COUNT (AUTO) 3.7 K/uL (4.3-11.0)
[2020-05-21 09:56] LABS: CALCIUM, SERUM 7.4 mg/dL (8.5-10.1); CREATININE 0.9 mg/dL (0.6-1.3); POTASSIUM 3.6 mmol/L (3.5-5.1)
[2020-05-21 10:02] LABS: ALBUMIN 1.9 g/dL (3.4-5.0); BILIRUBIN,TOTAL 0.1 mg/dL (0.2-1.0); MAGNESIUM 1.6 mg/dL (1.8-2.4); PHOSPHORUS 2.2 mg/dL (2.5-4.9); TOTAL PROTEIN, SERUM 5.2 g/dL (6.4-8.2)
[2020-05-21] MEDS: Magnesium 1GM/D5W 100ML PREMIX 100 ML IV SCH ×2 (10:34→11:42)
--- NOTE | 2020-05-21 13:00 | NUR ---
CENTRAL LINE REMOVED FROM RT. GROIN PRESSURE DRSG. APPLIED AND INSTRUCTED PT. NOT TO REMOVE FOR 24 HRS.
--- NOTE | 2020-05-21 15:30 | NUR ---
HAD LOOSE STOOLS X2.
[2020-05-21 16:00] VITALS: BP 107/73
[2020-05-21] MEDS ORDERED: NEUTRA PHOS 1 POWD.PACKET PO ONE (16:00)
--- NOTE | 2020-05-21 16:30 | NUR ---
GIVEN NEUTRA PHOS PER ORDERS.MEDICATED FOR STOMACH PAIN WITH MAALOX AND NORCO.
--- NOTE | 2020-05-21 16:40 | NUR ---
TAKEN TO LOBBY VIA W/C ACCOMPANIED BY ZACHARY KAMARA HERE FOR TRANSPORT.
== END 2020-05-21 16:43 | DRG 720 ==
LOC: ER 09:49 → ICU 12:45 → TELE 05-09 21:26 → MED 05-09 22:01
PROVIDERS: ADMIT Nurse Practitioner Acute Care; ATTEND Internal Medicine
DX: A41.9 Sepsis, unspecified organism (principal); N17.0 Acute kidney failure with tubular necrosis; E87.5 Hyperkalemia; K52.9 Noninfective gastroenteritis and colitis, unspecified; R65.21 Severe sepsis with septic shock; Z59.0 Homelessness; N39.0 Urinary tract infection, site not specified; F15.10 Other stimulant abuse, uncomplicated; E87.2 Acidosis; K56.600 Partial intestinal obstruction, unspecified as to cause; K56.7 Ileus, unspecified; E43 Unspecified severe protein-calorie malnutrition; E83.39 Other disorders of phosphorus metabolism; H54.3 Unqualified visual loss, both eyes; F31.9 Bipolar disorder, unspecified; Z88.8 Allergy status to other drugs, medicaments and biological substances; K57.30 Diverticulosis of large intestine without perforation or abscess without bleeding; F29 Unspecified psychosis not due to a substance or known physiological condition; E83.42 Hypomagnesemia; E66.01 Morbid (severe) obesity due to excess calories; Z68.39 Body mass index [BMI] 39.0-39.9, adult; N13.9 Obstructive and reflux uropathy, unspecified; R74.0 Nonspecific elevation of levels of transaminase and lactic acid dehydrogenase [LDH]; E80.6 Other disorders of bilirubin metabolism; M43.17 Spondylolisthesis, lumbosacral region; Z87.891 Personal history of nicotine dependence; E87.6 Hypokalemia
CPT/HCPCS: 36415; 71045-TC; 74018; 74250-TC; 80048-TC; 80053-TC; 80061-TC; 80076-TC; 80305; 81000-TC; 82436-TC; 82533; 82570-TC; 83605-TC; 83690-TC; 83735-TC; 83935-TC; 84100-TC; 84133-TC; 84155-TC; 84300-TC; 84443-TC; 84484-TC; 84703-TC; 85025-TC; 85610-TC; 86850-TC; 87040-TC; 87081-TC; 87086-TC; 93307-TC; 97116-TC; 97530-TC; A4216; A6253; A6403; C1751; C9803-CS; G0378; J0744; J1644; J1720; J2060; J2270; J2405; J2543; J3370; J3475; J3480; J3490; J7030; J7050; J7060; J8597; Q9963

== ENCOUNTER 2020-08-23 16:32 | Emergency (ER) | payer MEDICAID, OTHER ==
[~2020-08-23] VITALS: Ht 175.3 cm; Wt 108.9 kg
[2020-08-23] MEDS ORDERED: OLANZAPINE 5 MG TABLET PO ONE (17:00)
[2020-08-23] MEDS ORDERED: OLANZAPINE 5 MG TABLET ONE (17:07)
--- NOTE | 2020-08-23 17:22 | NUR ---
L[address]AY [address] C/O BEHAVIORAL AND EARACHE "THEY GAVE ME SOMETHING IKNOW ITS AN UPPER" PATIENT REFUSED MEDICATION AND TO HAVE BLOOD DRAWN, GRZEGORZ MADE AWARE.
[2020-08-23 17:48] LABS: BASOPHILS % (AUTO) 0.4 % (0.0-2.0); EOSINOPHILS % (AUTO) 0.1 % (0.0-6.0); HEMATOCRIT 43 % (33-45); HEMOGLOBIN 13.6 g/dL (11.5-14.8); LYMPHOCYTES # (AUTO) 1.1 /CMM (0.8-4.8); LYMPHOCYTES % (AUTO) 16.6 % (20.0-44.0); MEAN CORPUSCULAR HGB CONC 32 g/dl (31.0-36.0); MEAN CORPUSCULAR VOLUME 80 fL (82-100); MONOCYTES # (AUTO) 0.4 /CMM (0.1-1.30); MONOCYTES % (AUTO) 5.9 % (2.0-12.0); NEUTROPHILS # (AUTO) 5.2 /CMM (1.8-8.9); PLATELET COUNT (AUTO) 290 /CMM (150-450); RED BLOOD CELL COUNT(AUTO) 5.34 MIL/uL (4.0-5.2); WHITE BLOOD COUNT (AUTO) 6.8 K/uL (4.3-11.0)
[2020-08-23 18:11] LABS: ALANINE AMINOTRANSFERASE 59 U/L (12-78); ALBUMIN 3.5 g/dL (3.4-5.0); ALCOHOL, BLOOD 4 mg/dL (0-0); ALKALINE PHOSPHATASE 128 U/L (46-116); ASPARTATE AMINOTRANSFERASE 147 U/L (15-37); BILIRUBIN,DIRECT 0.2 mg/dL (0.0-0.2); BILIRUBIN,TOTAL 0.6 mg/dL (0.2-1.0); CALCIUM, SERUM 9.9 mg/dL (8.5-10.1); CARBON DIOXIDE 18 mmol/L (21-32); CHLORIDE 108 mmol/L (98-107); CREATININE 1.2 mg/dL (0.6-1.3); GLUCOSE 85 mg/dL (74-106); SODIUM SERUM 145 mmol/L (136-145); TOTAL PROTEIN, SERUM 7.8 g/dL (6.4-8.2); UREA NITROGEN, BLOOD 31 mg/dL (7-18)
[2020-08-23 18:15] LABS: ACETAMINOPHEN < 10 ug/ml (10-30); POTASSIUM 2.5 mmol/L (3.5-5.1)
[2020-08-23] MEDS ORDERED: IV NS 0.9% 1,000 ML BAG IV ONE ×2 (18:30→22:00)
[2020-08-23] MEDS ORDERED: POTASSIUM CHLORIDE 20 MEQ TAB.PRT.SR PO ONE ×2 (18:30→18:33)
--- NOTE | 2020-08-23 18:50 | NUR ---
PATIENT UNABLE TO GIVE URINE AT THIS TIME.
--- NOTE | 2020-08-23 18:58 | NUR ---
IV LINE ESTABLISHED.
--- NOTE | 2020-08-23 19:04 | NUR ---
provided admiting with clinicals for insurance.
--- NOTE | 2020-08-23 19:47 | NUR ---
tereso perla spoke to [facility] dr[facility] apple regarding plan of care.
[2020-08-23] MEDS ORDERED: POTASSIUM CL. PREMIX PERIPHER. 100 ML ONE (20:06)
[2020-08-23] MEDS: POTASSIUM CL. PREMIX PERIPHER. 50 ML IV SCH ×2 (20:20→21:26)
[2020-08-23 20:37] LABS: BILIRUBIN,URINE NEGATIVE (NEGATIVE); BLOOD, URINE LARGE Ery/uL (NEGATIVE); COLOR,URINE YELLOW (YELLOW); LEUKOCYTE ESTERASE ,URINE NEGATIVE (NEGATIVE); NITRITE, URINE NEGATIVE (NEGATIVE); PH,URINE 5.5 (5.0-8.0); PROTEIN,URINE 100 mg/dl (NEGATIVE); UGLUCOSE NEGATIVE (NEGATIVE); UROBILINOGEN,URINE 0.2 EU/dL (0.2)
[2020-08-23 20:57] LABS: BACTERIA,URINE 1+ /HPF (None Seen); CALCIUM OXALATE CRYSTALS,UR Few /HPF (None Seen); COARSE GRANULAR CASTS,URINE Moderate /LPF (None Seen); SQUAMOUS EPITHELIAL CELL,UR Few /HPF (None Seen); WBC,URINE 0-2 /HPF (0-3)
--- NOTE | 2020-08-23 21:53 | NUR ---
PT NOTED TACHY, PA ORDERED 1L NS DUE TO BUN LEVEL. VSS.
--- NOTE | 2020-08-23 22:40 | NUR ---
CALLED LAB FOR BMP REDRAW.
[2020-08-23 23:15] LABS: CALCIUM, SERUM 8.8 mg/dL (8.5-10.1); POTASSIUM 3.5 mmol/L (3.5-5.1)
--- NOTE | 2020-08-23 23:29 | NUR ---
CALLED AJIT PM CALL [facility] [phone]. LEFT VOICEMAIL. WAITING FOR CALL BACK
--- NOTE | 2020-08-24 02:10 | NUR ---
2ND CALL: AJIT REGISTERED NURSE BONE MARROW TRANSPLANT [phone]. LEFT VOICEMAIL. WAITING FOR CALL BACK
--- NOTE | 2020-08-24 03:20 | NUR ---
CULLEN FONGW CALLED, WILL BE HERE IN ABOUT 3 HOURS,
--- NOTE | 2020-08-24 04:06 | NUR ---
PATIENT IS LAYING IN BED SLEEPING. EASILY AROUSABLE. BREATHING EVENLY AND UNLABROED ON ROOM AIR. CONNECTED TO THE MONITOR. BED AT THE LOWEST POSITION. SITTER AT BEDSIDE. CALL LIGHT WITHIN REACH. PATIENT IS IN THE MOST COMFORTABLE POSITION. WILL CONTINUE TO THE MONITOR.
--- NOTE | 2020-08-24 05:34 | NUR ---
miranda group tester at beside for eval.
--- NOTE | 2020-08-24 05:46 | NUR ---
EVALUATED BY AJIT RAMÍREZ
--- NOTE | 2020-08-24 07:19 | NUR ---
REPORT GIVEN TO ELIZABETH RITCHIE FOR WINTER.
--- NOTE | 2020-08-24 08:27 | NUR ---
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
--- NOTE | 2020-08-24 08:33 | NUR ---
Patient awake alert noted moaning stated wants to eat breakfast given non distress @ this time .
--- NOTE | 2020-08-24 12:00 | NUR ---
Patient vitals taken and filed noted Hr 120 MD aware continue to monitor .
[2020-08-24] MEDS ORDERED: ACETAMINOPHEN 325 MG TABLET PO ONE (13:00)
[2020-08-24] MEDS ORDERED: IBUPROFEN 400 MG TABLET PO ONE (13:00)
[2020-08-24] MEDS ORDERED: IBUPROFEN 400 MG TABLET ONE (13:21)
--- NOTE | 2020-08-24 13:28 | NUR ---
Patient calling complain of pain body pain MD aware patient requesting for Pain .
--- NOTE | 2020-08-24 13:29 | NUR ---
Patient able to sip and drink to cup refused pain meds Motrin .
--- NOTE | 2020-08-24 15:00 | NUR ---
Patient awake alert denies SI ,stated needs help for place to stay ,for social media senior associate ,patient had episode call yelling , non follows sitter @ bedside .
[2020-08-24] MEDS ORDERED: LORAZEPAM INJ 2 MG/ML VIAL IV ONE (18:00)
--- NOTE | 2020-08-24 18:00 | NUR ---
patient is agitation noted PA aware with order Ativan .
[2020-08-24] MEDS ORDERED: LORAZEPAM INJ 2 MG/ML VIAL ONE (18:04)
--- NOTE | 2020-08-25 00:40 | NUR ---
Albin shaver in EDM - 08/25/20 at 0055 by CRISTA called [facility]; [phone]. spoke to vanessa hough nurse rosio guy to admit at [facility] facility for covid r/o pt. fax #[phone]
--- NOTE | 2020-08-25 03:01 | NUR ---
Patient is resting comfortably in bed with eyes closed. Easily aroused. VSS
--- NOTE | 2020-08-25 11:43 | NUR ---
SW met with the patient at bedside. Patient is known to this SW from previous admission to [facility] Med Surg 3. Patient reported that she left the living facility she was at and wants this SW to help place her in a new living facility. Patient also requested that this SW provided financial resources for the patient to return to [facility]. JAQUELINE informed the patient that SW can provided follow-up agencies for long-term case management but is not aware of facilities with financial resources. Patient declined follow-up agencies. SW referred this patient to [facility] as they assisted in finding placement for this patient during patient's previous admission. JAQUELINE spoke with Chacha at [facility] regarding this patient. Per Chacha, JAQUELINE needs to fax clinicals including face sheet and medical clearance to . Plan: JAQUELINE to follow up with Chacha regarding fax referral and for an update if this SW does not receive an update. JAQUELINE remains available for all needs regarding this patient.
--- NOTE | 2020-08-25 13:44 | NUR ---
JAQUELINE followed up with [facility] and spoke to Chacha. Chacha informed this SW that the patient was accepted by [facility] [address] [place] [address]. [place] [address] and Chacha provided an ETA of 30 minutes. JAQUELINE remains available for all needs regarding this patient.
--- NOTE | 2020-08-25 13:58 | NUR ---
Patient made aware of discharge plan and in agreement. SW notified channel specialist Gener and Dr. Valdez of discharge plan to [facility] [address] [address] . SW remains available for all needs regarding this patient.
--- NOTE | 2020-08-25 15:00 | NUR ---
Patient discharged to home in stable condition. Written and verbal after care instructions given. Patient verbalizes understanding of instruction. picked up by friend in white bmw
[2020-08-25 19:25] VITALS: BP 114/89
== END 2020-08-25 15:30 | disposition home or self-care (01) ==
LOC: ER 16:36
DX: E87.6 Hypokalemia (principal); E86.0 Dehydration; F15.90 Other stimulant use, unspecified, uncomplicated; F22 Delusional disorders; H54.40 Blindness, one eye, unspecified eye; F17.200 Nicotine dependence, unspecified, uncomplicated; Z59.0 Homelessness; Z98.890 Other specified postprocedural states; Z88.6 Allergy status to analgesic agent; Z60.2 Problems related to living alone
CPT/HCPCS: 36415; 80048 ×2; 80076; 80299; 80307; 80320; 81001; 82962; 83735; 85025; 93005; 96361; 96365; 96366; 96375; 99285; J2060; J3480; J7030 ×2; G0480

== ENCOUNTER → 2020-09-17 | Emergency (ER) | payer OTHER ==
[~2020-09-17] VITALS: Ht 165.1 cm; Wt 108.9 kg
--- NOTE | 2020-09-17 02:45 | NUR ---
PT LASHAY FROM [facility] C/O CHEST PAIN AND SOB. PER RA, PT TESTED COVID POSITIVE 08/31/20. PT AAOX4, LEGALLY BLIND. VITAL SIGNS STABLE. RESPIRATIONS EVEN AND UNLABORED. SKIN WARM AND INTACT. PLACED IN ISOLATION ROOM, CALL LIGHT WITHIN REACH. PLACED IN GOWN AND ON CONTINUOUS TICKER INSTALLER AND PULSE OX, WILL CONTINUE TO MONITOR
--- NOTE | 2020-09-17 03:05 | NUR ---
IV INITATED R HAND 20G. LABS DRAWN FROM SITE. PATTERN PUNCHER AT BEDSIDE FOR COLLECTION. IV INTACT AND PATENT, PLACED ON SALINE LOCK
[2020-09-17 03:10] LABS: BASOPHILS % (AUTO) 1.3 % (0.0-2.0); EOSINOPHILS % (AUTO) 0.5 % (0.0-6.0); HEMATOCRIT 40 % (33-45); HEMOGLOBIN 12.8 g/dL (11.5-14.8); LYMPHOCYTES # (AUTO) 1.5 /CMM (0.8-4.8); LYMPHOCYTES % (AUTO) 44.3 % (20.0-44.0); MEAN CORPUSCULAR HGB CONC 32 g/dl (31.0-36.0); MEAN CORPUSCULAR VOLUME 78 fL (82-100); MONOCYTES # (AUTO) 0.3 /CMM (0.1-1.30); MONOCYTES % (AUTO) 9.4 % (2.0-12.0); NEUTROPHILS # (AUTO) 1.5 /CMM (1.8-8.9); NEUTROPHILS % (AUTO) 44.5 % (43.0-81.0); PLATELET COUNT (AUTO) 365 /CMM (150-450); RED BLOOD CELL COUNT(AUTO) 5.18 MIL/uL (4.0-5.2); WHITE BLOOD COUNT (AUTO) 3.4 K/uL (4.3-11.0)
[2020-09-17 03:14] VITALS: BP 140/96
--- NOTE | 2020-09-17 03:17 | NUR ---
RADIOLOGY AT BEDSIDE FOR CXR
[2020-09-17 03:19] LABS: CALCIUM, SERUM 9.2 mg/dL (8.5-10.1); CARBON DIOXIDE 25 mmol/L (21-32); CHLORIDE 106 mmol/L (98-107); CREATININE 0.8 mg/dL (0.6-1.3); GLUCOSE 100 mg/dL (74-106); POTASSIUM 3.5 mmol/L (3.5-5.1); SODIUM SERUM 140 mmol/L (136-145); UREA NITROGEN, BLOOD 14 mg/dL (7-18)
[2020-09-17 03:31] LABS: ALANINE AMINOTRANSFERASE 23 U/L (12-78); ALBUMIN 2.8 g/dL (3.4-5.0); ALKALINE PHOSPHATASE 92 U/L (46-116); ASPARTATE AMINOTRANSFERASE 21 U/L (15-37); B-TYPE NATRIURETIC PEPTIDE 23 PG/ML (0-125); BILIRUBIN,TOTAL 0.3 mg/dL (0.2-1.0); TOTAL PROTEIN, SERUM 7.7 g/dL (6.4-8.2)
--- NOTE | 2020-09-17 04:00 | NUR ---
PT REFUSING TO BE DISCHARGED AND SENT BACK TO [facility]. PT STATES "I DON'T LIKE THE WAY THEY TREAT ME THERE". MD SPEARS
--- NOTE | 2020-09-17 07:00 | NUR ---
REPORT GIVEN TO CHAU AVALOS FOR WINTER. PT MEDICALLY CLEARED FOR DISCHARGE PER DR. KILLIAN, PENDING HEALTH CARE LAW SPECIALIST FOR PLACEMENT.
--- NOTE | 2020-09-17 12:57 | NUR ---
Patient is a 60 year-old female. Patient is known to this SW. Patient was on the floor, screaming, with the assistance of catalyst operator chief Hal, patient was sat in a chair and calmed down. Patient reported that she does not want to return to current board and care because she does not like it. SW spoke with [employer] Diandra, that patient at this time does not qualify for a [facility] facility placement. SW to follow-up with [facility], per patients request. SW to also follow-up with [facility] as they assisted in finding placement for this patient in the past.
--- NOTE | 2020-09-17 13:15 | NUR ---
JAQUELINE spoke with Chacha at [facility] regarding this patient. Per Chacha, Chacha will assist in finding a new board and care facility if patient is agreeable. Plan: SW to follow-up with the patient following follow-up with [facility].
--- NOTE | 2020-09-17 13:45 | NUR ---
SW attempted to speak to a telephone services sales representative at [facility] regarding patient's status with [facility]. No telephone services sales representative available at this time. SW left callback number in a voicemail.
--- NOTE | 2020-09-17 13:57 | NUR ---
SW attempted to speak to a education courses sales representative at [facility] regarding patient's status with [facility]. No education courses sales representative available at this time.
--- NOTE | 2020-09-17 15:20 | NUR ---
Patient is agreeable to return to a different board and care through [facility] . JAQUELINE contacted Chacha and Chacha will have the patient transported today to a different placement. Chacha will reach out to this regarding further details.
--- NOTE | 2020-09-17 16:55 | NUR ---
Patient is agreeable to return to a different board and care through [facility] . Chacha contacted and Chacha informed this patient is going to [address] [place] [address] [phone] . [facility] will discharge in a taxi.
== END | disposition home or self-care (01) ==
LOC: ER 02:38
DX: R07.9 Chest pain, unspecified (principal); J02.9 Acute pharyngitis, unspecified; R53.83 Other fatigue; R06.02 Shortness of breath; Z20.828 Contact with and (suspected) exposure to other viral communicable diseases; H54.8 Legal blindness, as defined in USA; Z88.6 Allergy status to analgesic agent; Z59.0 Homelessness
CPT/HCPCS: 36415; 71045; 80053; 83880; 84484; 85025; 87426; 93005; 99285; C9803